=== PATIENT | female | born 1940 | race American Indian/Alaskan Native ===

== ENCOUNTER 2016-10-14 02:19 | Inpatient (IN) | payer MEDICARE ==
[2016-10-14] MEDS ORDERED: Labetalol 100 MG in Sodium Chloride 0.9% 80 ML IV PRN (02:41)
[2016-10-14] MEDS ORDERED: Labetalol 5 mg/ml Inj 20ML ONE (02:46)
[2016-10-14] MEDS ORDERED: Morphine 2 mg/ml ISec IVP STA ×2 (02:54→05:41)
[2016-10-14] MEDS: Labetalol 5 mg/ml Inj 20ML IV STA ×2 (02:55→07:01)
[2016-10-14] MEDS ORDERED: Nitroglycerin 2% Ointment Foilpak UD TOP STA (02:58)
--- NOTE | 2016-10-14 02:58 | ED PDOC ---
Arrival/HPI - General Chief Complaint: Chest Pain Time Seen by Provider: 10/14/16 02:28 Historian: Patient - History of Present Illness Narrative History of Present Illness (Text): 10/14/16 02:58 76 year old female. whose past medical history includes diabetes and hypertensions, presents to the emergency department complaining of mid-sternal chest pain since yesterday. Patient also reports left lower jaw swelling with associated pain to the area today. She states she regularly wears dentures. Patient denies any fever, chills, shortness of breath, nausea, vomiting, diarrhea, urinary symptoms, back pain, neck pain, headache, dizziness, or any other complaints. PMD: Dr. Gomes Time/Duration: Other (today) Symptom Course: Unchanged Activities at Onset: Light Context: Home Past Medical History - Provider Review Nursing Documentation Reviewed: Yes - Reproductive Menopause: Yes - Cardiac Hx Hypertension: Yes - Pulmonary Hx Respiratory Disorders: No - Neurological Hx Neurological Disorder: No - HEENT Hx HEENT Disorder: No - Renal Hx Renal Disorder: No - Endocrine/Metabolic Hx Diabetes Mellitus Type 2: Yes - Hematological/Oncological Hx Blood Disorders: No - Integumentary Hx Dermatological Disorder: No - Musculoskeletal/Rheumatological Hx Musculoskeletal Disorders: No - Gastrointestinal Hx Gastrointestinal Disorders: No - Genitourinary/Gynecological Hx Genitourinary Disorders: No - Psychiatric Hx Psychophysiologic Disorder: No Hx Substance Use: No Family/Social History - Physician Review Nursing Documentation Reviewed: Yes Family/Social History: No Known Family HX Smoking Status: Former Smoker Hx Alcohol Use: No Hx Substance Use: No Allergies/Home Meds Allergies/Adverse Reactions: Allergies Penicillins Allergy (Verified 10/14/16 02:33) RASH Home Medications: Home Meds Medication Instructions Recorded Confirmed Unobtainable 10/14/16 10/14/16 Review of Systems - Physician Review All systems were reviewed & negative as marked: Yes - Review of Systems Constitutional: Normal. absent: Fevers, Other (Chills) Respiratory: Normal. absent: SOB Cardiovascular: Chest Pain Gastrointestinal: absent: Diarrhea, Nausea, Vomiting Genitourinary Female: Normal. absent: Dysuria, Hematuria Musculoskeletal: Normal. absent: Back Pain, Neck Pain Skin: Other (Swelling on her left lower mouth ) Neurological: Normal. absent: Headache, Dizziness Physical Exam Vital Signs Reviewed: Yes Vital Signs Temp Pulse Resp BP Pulse Ox 10/14/16 05:19 86 16 146/71 98 10/14/16 04:39 102 H 16 162/89 H 98 10/14/16 04:02 100 H 16 169/77 H 99 10/14/16 03:35 88 178/100 H 10/14/16 02:55 98 H 220/98 H 10/14/16 02:33 99.1 F 98 H 18 244/131 H 96 Temperature: Afebrile Blood Pressure: Hypertensive Pulse: Regular Respiratory Rate: Normal Appearance: Positive for: Well-Appearing Pain Distress: None Mental Status: Positive for: Alert and Oriented X 3 - Systems Exam Head: Present: Normocephalic, Tenderness (tenderness to the left lower face), Swelling (Soft tissue swelling on the left lower face, with no overlying erythema to skin) Pupils: Present: PERRL Extroacular Muscles: Present: EOMI Conjunctiva: Present: Normal Mouth: Present: Moist Mucous Membranes. No: Normal Teeth (Poor dentition to the lower left molar teeth) Pharnyx: Present: Normal Neck: Present: Normal Range of Motion Respiratory/Chest: Present: Clear to Auscultation, Good Air Exchange. No: Respiratory Distress, Accessory Muscle Use Cardiovascular: Present: Regular Rate and Rhythm, Normal S1, S2. No: Murmurs Abdomen: Present: Normal Bowel Sounds. No: Tenderness, Distention, Peritoneal Signs Back: Present: Normal Inspection Upper Extremity: Present: Normal Inspection Lower Extremity: Present: Normal Inspection. No: Edema Neurological: Present: GCS=15, CN II-XII Intact, Speech Normal Skin: Present: Warm, Dry, Normal Color. No: Rashes Psychiatric: Present: Alert, Oriented x 3, Normal Insight, Normal Concentration Medical Decision Making ED Course and Treatment: 10/14/16 02:58 Impression: 76 year old female present complaining of left lower mouth swelling and pain that began yesterday. Plan: -- EKG -- Labs -- Blood Culture -- Chest X-ray -- Aspirin -- IV Fluids -- Morphine -- Nitro-bid -- Trandate -- Reassess and disposition Progress Notes: EKG shows NSR at 100 BPM with LVH Non-specific ST/T changes Interpreted by me. 10/14/16 03:57 Chest X-ray read and interpreted by me, which shows no acute processes. 10/14/16 05:[address] Larsen, covering for Dr. Liang, who aware and agrees with plan. Patient will be admitted to telemetry for uncontrolled hypertension, chest pain, and possible dental abscess. Requests Dr. Sood and Dr. Chapman on consult. founder president and ceo notified. - Lab Interpretations Lab Results: 10/14/16 02:55 10/14/16 02:55 Lab Results 10/14/16 02:55: WBC 8.5, RBC 4.28, Hgb 13.0, Hct 37.6, MCV 87.9, MCH 30.4, MCHC 34.6, RDW 13.3, Plt Count 234, MPV 10.6 10/14/16 02:55: Sodium 140, Potassium 3.8, Chloride 99, Carbon Dioxide 28, Anion Gap 17, BUN 10, Creatinine 0.7, Est GFR ( Amer) > 60, Est GFR (Non- Af Amer) > 60, Random Glucose 221 H, Calcium 9.6, Total Bilirubin 0.7, AST 22, ALT 31, Alkaline Phosphatase 78, Lactate Dehydrogenase 580, Total Creatine Kinase 200, Troponin I 0.01, Total Protein 8.4 H, Albumin 4.7, Globulin 3.7, Albumin/Globulin Ratio 1.3 10/14/16 02:55: PT 11.3, INR 1.05, APTT 26.4 I have reviewed the lab results: Yes - RAD Interpretation Radiology Orders: 10/14/16 02:43 CHEST PORTABLE [RAD] Stat - EKG Interpretation Interpreted by ED Physician: Yes Type: 12 lead EKG - Medication Orders Current Medication Orders: Labetalol HCl 100 mg/ Sodium (Chloride) 100 mls @ 60 mls/hr IV .Q1H40M PRN; Protocol; 1 MG/MIN PRN Reason: TITRATE PER MD ORDER Last Admin: 10/14/16 03:35 Dose: 60 mls/hr Clindamycin Phosphate 300 mg/ (Sodium Chloride) 52 mls @ 104 mls/hr IVPB STAT STA PRN Reason: Protocol Stop: 10/14/16 05:38 Discontinued Medications Aspirin (Aspirin) 325 mg PO ONCE STA Stop: 10/14/16 02:55 Last Admin: 10/14/16 03:03 Dose: 325 mg Labetalol HCl (Trandate) 20 mg IV STAT STA Stop: 10/14/16 02:42 Last Admin: 10/14/16 02:55 Dose: 20 mg Labetalol HCl (Trandate) Confirm Administered Dose 100 mg .ROUTE .STK-MED ONE Stop: 10/14/16 02:47 Morphine Sulfate (Morphine) 2 mg IVP STAT STA Stop: 10/14/16 02:55 Last Admin: 10/14/16 03:03 Dose: 2 mg Nitroglycerin (Nitro-Bid 2% Oint) 1 ea TOP ONCE STA Stop: 10/14/16 02:59 Last Admin: 10/14/16 03:17 Dose: 1 ea - Scribe Statement The provider has reviewed the documentation as recorded by the Scribe Cristel Lazo training with Imani Gill All medical record entries made by the Scribe were at my direction and personally dictated by me. I have reviewed the chart and agree that the record accurately reflects my personal performance of the history, physical exam, medical decision making, and the department course for this patient. I have also personally directed, reviewed, and agree with the discharge instructions and disposition. Disposition/Present on Arrival - Present on Arrival Any Indicators Present on Arrival: No History of DVT/PE: No History of Uncontrolled Diabetes: No Urinary Catheter: No History of Decub. Ulcer: No History Surgical Site Infection Following: None - Disposition Have Diagnosis and Disposition been Completed?: Yes Diagnosis: Chest pain, Uncontrolled hypertension, Dental abscess Disposition: HOSPITALIZED Disposition Time: 05:32 Patient Plan: Admission Condition: STABLE Discharge Instructions (ExitCare): Chest Pain (ED) Referrals: Bishnu Gomes [Primary Care Provider] - Follow up with primary Forms: [employer] (Citizen Of [place])
[2016-10-14 03:12] LABS: MEAN CELL VOLUME 87.9 fl (80.0-105.0); MEAN CORPUSCULAR HEMOGLOBIN 30.4 pg (25.0-35.0); MEAN CORPUSCULAR HGB CONC 34.6 g/dl (31.0-37.0); MEAN PLATELET VOLUME 10.6 fl (7.0-11.0); RBC 4.28 10^6/uL (3.5-6.1); RED CELL DISTRIBUTION WIDTH 13.3 % (11.5-14.5); WHITE BLOOD COUNT 8.5 10^3/ul (4.5-11.0)
[2016-10-14 03:19] LABS: ALB/GLOB RATIO 1.3 (1.1-1.8); ALBUMIN 4.7 g/dL (3.0-4.8); ALT/SGPT 31 U/L (7-56); AST/SGOT 22 U/L (15-39); BLOOD UREA NITROGEN 10 mg/dL (7-21); CALCIUM 9.6 mg/dL (8.4-10.5); GFR AFRICAN-AMERICAN > 60; GFR NON-AFRICAN AMERICAN > 60; INR 1.05 (0.93-1.08); PARTIAL THROMBOPLASTIN TIME 26.4 Seconds (23.7-30.8); PROTHROMBIN TIME 11.3 Seconds (9.9-11.8)
[2016-10-14 03:55] LABS: TROPONIN I 0.01 ng/mL
[2016-10-14] MEDS ORDERED: Clindamycin 300 MG in Sodium Chloride 0.9% 50 ML IVPB STA (05:09)
[2016-10-14] MEDS ORDERED: Clindamycin 150 mg/mL Inj ONE (05:44)
--- NOTE | 2016-10-14 07:37 | CP.PCM.HP ---
History of Present Illness - History of Present Illness History of Present Illness: CC: Jaw pain/Chest Pain/HTN HPI: Mrs. Oconnell is a 76 year old AA female with a past medical history significant for multiple dental caries, DM2 and uncontrolled HTN who presented to the ED with jaw and chest pain. Patient states that two days ago, her dentures were "rubbing the inside of her mouth too much" and causing her pain inside of her mouth so she took them out. The following morning she woke up with a new mass on her L jaw line and increased pain. Patient states that at that point she took motrin and a percocet 5/325 for the pain and afterwards she started having chest discomfort. She describes this discomfort as "indigestion" that she always gets when she takes motrin. The discomfort is substernal and non -radiating. She reports no alleviating or aggravating factors. She has never had either of these two issues in the past. Upon presentation to the ED, she was found to have a BP of 244/13 but denied any weakness, lightheadedness, vertigo, or pre-syncope. She reports having been admitted to [facility] for this issue in the past but reports that she was "dizzy and almost fainted" at that time. Currently, patient reports that her jaw pain is better but that she is concerned with the mass on her jaw. Patient denies any fever, chills, shortness of breath, nausea, vomiting, diarrhea, urinary symptoms, back pain, neck pain, headache, dizziness, or any other complaints. PMH: DM2, HTN, dental caries PSH: Heart Cath done at [facility] two years ago that showed no blockages, per patient (done for "precaution") Family: Two brothers with heart disease, with one dying from [place] at age 38 Social: 20 year pack smoking history but quit in 1992, denies alcohol or illicit drug use Allergies: Penicillin Home meds: Enalapril, Metoprolol, and Metformin Present on Admission - Present on Admission Any Indicators Present on Admission: No Review of Systems - Review of Systems Review of Systems: Please refer to HPI Past Patient History - Past Social History Smoking Status: Former Smoker - CARDIAC Hx Hypertension: Yes - PULMONARY Hx Respiratory Disorders: No - NEUROLOGICAL Hx Neurological Disorder: No - HEENT Hx HEENT Problems: No - RENAL Hx Chronic Kidney Disease: No - ENDOCRINE/METABOLIC Hx Diabetes Mellitus Type 2: Yes - HEMATOLOGICAL/ONCOLOGICAL Hx Blood Disorders: No - INTEGUMENTARY Hx Dermatological Problems: No - MUSCULOSKELETAL/RHEUMATOLOGICAL Hx Musculoskeletal Disorders: No - GASTROINTESTINAL Hx Gastrointestinal Disorders: No - GENITOURINARY/GYNECOLOGICAL Hx Genitourinary Disorders: No - PSYCHIATRIC Hx Psychophysiologic Disorder: No Hx Substance Use: No - SURGICAL HISTORY Hx Surgeries: No Meds Allergies/Adverse Reactions: Allergies Allergy/AdvReac Type Severity Reaction Status Date / Time Penicillins Allergy RASH Verified 10/14/16 02:33 Physical Exam - Constitutional Appears: No Acute Distress - Head Exam Head Exam: ATRAUMATIC, NORMOCEPHALIC - Eye Exam Eye Exam: EOMI, Normal appearance, PERRL. absent: Conjunctival injection, Periorbital tenderness, Scleral icterus Pupil Exam: NORMAL ACCOMODATION, PERRL - ENT Exam ENT Exam: Mucous Membranes Moist, Normal Exam Additional comments: Mobile, non-indurated approximately 6cm mass on L mandible with no overlying erythema or purulent drainage, and no visible open wounds on inside of mouth; multiple dental caries - Neck Exam Neck exam: Positive for: Full Rom, Normal Inspection. Negative for: Lymphadenopathy, Meningismus, Tenderness, Thyromegaly - Respiratory Exam Respiratory Exam: Clear to Auscultation Bilateral, NORMAL BREATHING PATTERN. absent: Rales, Rhonchi, Wheezes, Respiratory Distress, Stridor - Cardiovascular Exam Cardiovascular Exam: REGULAR RHYTHM, RRR, +S1, +S2. absent: Tachycardia, Systolic Murmur - GI/Abdominal Exam GI & Abdominal Exam: Normal Bowel Sounds, Soft. absent: Distended, Firm, Guarding, Tenderness - Exam Exam: absent: Bladder Distension - Extremities Exam Extremities exam: Positive for: normal capillary refill, normal inspection, pedal pulses present. Negative for: calf tenderness, pedal edema - Back Exam Back exam: absent: CVA tenderness (L), CVA tenderness (R) - Neurological Exam Neurological exam: Alert, Oriented x3 - Psychiatric Exam Psychiatric exam: Normal Affect, Normal Mood - Skin Skin Exam: Dry, Intact, Normal Color, Warm Results - Vital Signs Recent Vital Signs: Last Vital Signs Temp 100.3 F H 10/14/16 07:02 Pulse 73 10/14/16 07:02 Resp 18 10/14/16 07:02 BP 139/73 10/14/16 07:02 Pulse Ox 96 10/14/16 07:02 - Labs Result Diagrams: 10/14/16 02:55 10/14/16 02:55 Assessment & Plan - Assessment and Plan (Free Text) Assessment: 76 year old AA female with a past medical history significant for multiple dental caries, DM2 and uncontrolled HTN who presented to the ED with jaw and chest pain Plan: 1. Jaw Mass -likely infectious in etiology with possible source being dental caries -started on clindamycin 600mg IV Q8H; noted allergy to penicillin (patient states that she gets a rash) -motrin for pain control -zofran PRN -mandible w/wo contrast CT pending -ABG, CMV, EBV, CRP, ESR, Blood Culture and Urine Culture all pending -presented with tachycardia but currently afebrile, normotensive and with no leukocytosis -ENT and ID consulted, will follow recommendations 2. Uncontrolled Hypertension -presented with a BP of 244/131 -remained asymptomatic -started on labetolol drip and is currently normotensive -labetolol drip d/c so patient could be admitted to telemetry floor -started home metoprolol -started on lisinopril because home enalapril is NF -thyroid studies pending -cont to monitor with telemetry and vital signs Q4H 3. 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 DM Type 2 -SSI-Low -held home metformin -fingersticks Q6H ACHS -moderate carbohydrate consistent diet 5. GI/DVT Prophylaxis -Protonix/scd's Patient seen and case discussed with attending, Dr. Larsen who is covering for Dr. Liang's service overnight. - Date & Time Date: 10/14/16 Time: 07:35 Decision To Admit - Pt Status Changed To: Hospital Disposition Of: Inpatient Admission - Admit Certification Admit to Inpatient:: After my assessment, the patient will require hospitalization for at least two midnights. This is because of the severity of symptoms shown, intensity of services needed, and/or the medical risk in this patient being treated as an outpatient. - . Bed Request Type: Telemetry
--- NOTE | 2016-10-14 08:00 | RAD ---
HISTORY: chest pain COMPARISON: No prior. FINDINGS: LUNGS: No active pulmonary disease. PLEURA: No significant pleural effusion identified, no pneumothorax apparent. CARDIOVASCULAR: Normal. OSSEOUS STRUCTURES: No significant abnormalities. VISUALIZED UPPER ABDOMEN: Normal. OTHER FINDINGS: None. IMPRESSION: No active disease.
[2016-10-14 08:07] LABS: ARTERIAL BLOOD GAS O2 SAT 97.4 % (95-98); ARTERIAL BLOOD GAS PCO2 38 mm/Hg (35-45); ARTERIAL BLOOD GAS PH 7.46 (7.35-7.45); ARTERIAL BLOOD GAS TCO2 28.2 mmol.L (22-28)
[2016-10-14] MEDS: Vancomycin 1gm in NS 250ml 1 GM/250 ML BAG IVPB SCH ×2 (08:36→20:13)
[2016-10-14] MEDS: metroNIDAZOLE IV 500 mg/100 ml 500 MG/100 ML BAG IVPB SCH ×3 (08:37→23:43)
[2016-10-14] MEDS: Sodium Chloride 0.9% 1,000 ML IV SCH ×2 (08:37→22:58)
[2016-10-14 09:28] LABS: FREE T4 1.15 ng/dL (0.78-2.19); T4 7.9 ug/dL (5.5-11.0)
[2016-10-14 09:34] LABS: TROPONIN I 0.01 ng/mL
[2016-10-14 09:41] LABS: T3 1.04 ng/mL (0.97-1.69)
[2016-10-14] MEDS: Aztreonam 1 Gm in NS 100mL 100 ML IVPB SCH ×3 (11:11→22:41)
[2016-10-14] MEDS ORDERED: Iohexol 350 MG/100 ML VIAL ONE (11:11)
[2016-10-14] MEDS: Nystatin 100,000 Units/ml Oral Susp 5 ml UD PO SCH ×4 (11:12→22:47)
[2016-10-14] MEDS: Morphine 2 mg/ml ISec IVP SCH ×2 (11:17→17:39)
--- NOTE | 2016-10-14 13:14 | CT ---
PROCEDURE: CT NECK WITH and without CONTRAST HISTORY: r/o abscess COMPARISON: None TECHNIQUE: CT of the neck with intravenous contrast. Coronal and sagittal reformats generated. Intravenous contrast dose: 100 cc of Omni 350 Radiation dose: DLP 472 mGy-cm This CT exam was performed using one or more of the following dose reduction techniques: Automated exposure control, adjustment of the mA and/or kV according to patient size, and/or use of iterative reconstruction technique. FINDINGS: NASOPHARYNX: Unremarkable. SUPRAHYOID NECK: Unremarkable oropharynx, oral cavity, parapharyngeal space and retropharyngeal space. INFRAHYOID NECK: Unremarkable larynx, hypopharynx, and supraglottic space. Vocal cords intact. There is a large amount of soft tissue swelling and edema anterior to the left side of the mandible. This is consistent with cellulitis. There is no evidence of a discrete abscess and there is no bony destruction to suggest a dental abscess. There are some bilateral periapical lucencies around the molars. MASS: None. GLANDS: Parotid and submandibular glands unremarkable. Normal size thyroid gland, without nodule. LYMPH NODES: Normal. No lymphadenopathy. CERVICAL SPINE: No fracture or focal lesion. VASCULAR STRUCTURES: Unremarkable. OTHER FINDINGS: None. IMPRESSION: There is a large amount of soft tissue swelling and edema anterior to the left side of the mandible. This is consistent with cellulitis. There is no evidence of a discrete abscess and there is no bony destruction to suggest a dental abscess.
[2016-10-14] MEDS: Insulin Reg-LOW-Coverage SC SCH ×3 (13:15→22:39)
--- NOTE | 2016-10-14 17:09 | CP.PCM.CON ---
History of Present Illness - History of Present Illness History of Present Illness: 76 year old female with PMH of HTN, DM came in to [facility] because of chest pain and left-sided jaw pain for the past 1-2 days. She states that she has been having some problems with her dentures over the past few days. She denies SOB, no headache or dizziness, no abdominal pain, no fever or chills, no dysuria, no diarrhea. There is noted swelling on the left side of the jaw and Infectious Diseases consult is requested to further evaluate and manage. Review of Systems - Review of Systems All systems: reviewed and no additional remarkable complaints except (as per HPI ) Past Patient History - Past Social History Smoking Status: Former Smoker - CARDIAC Hx Hypertension: Yes - PULMONARY Hx Respiratory Disorders: No - NEUROLOGICAL Hx Neurological Disorder: No - HEENT Hx HEENT Problems: No - RENAL Hx Chronic Kidney Disease: No - ENDOCRINE/METABOLIC Hx Diabetes Mellitus Type 2: Yes - HEMATOLOGICAL/ONCOLOGICAL Hx Blood Disorders: No - INTEGUMENTARY Hx Dermatological Problems: No - MUSCULOSKELETAL/RHEUMATOLOGICAL Hx Musculoskeletal Disorders: No - GASTROINTESTINAL Hx Gastrointestinal Disorders: No - GENITOURINARY/GYNECOLOGICAL Hx Genitourinary Disorders: No - PSYCHIATRIC Hx Psychophysiologic Disorder: No Hx Substance Use: No - SURGICAL HISTORY Hx Surgeries: No Meds Allergies/Adverse Reactions: Allergies Allergy/AdvReac Type Severity Reaction Status Date / Time Penicillins Allergy RASH Verified 10/14/16 02:33 Physical Exam - Constitutional Appears: Non-toxic, No Acute Distress - Head Exam Head Exam: NORMAL INSPECTION - Neck Exam Neck exam: Negative for: Meningismus - Respiratory Exam Respiratory Exam: Decreased Breath Sounds - Cardiovascular Exam Cardiovascular Exam: +S1, +S2 - GI/Abdominal Exam GI & Abdominal Exam: Soft. absent: Tenderness Results - Vital Signs Recent Vital Signs: Last Vital Signs Temp 99.1 F 10/14/16 02:33 Pulse 100 H 10/14/16 06:07 Resp 16 10/14/16 06:07 BP 145/69 10/14/16 06:07 Pulse Ox 97 10/14/16 06:07 - Labs Result Diagrams: 10/14/16 02:55 10/14/16 02:55 Assessment & Plan - Assessment and Plan (Free Text) Plan: Assessment Left jaw skin and skin structure infection, without evidence of abscess on CT scan HTN DM Plan We have started the patient on Vancomycin and will monitor clinically; follow up blood cx; reviewed CT of the neck and jaw
--- NOTE | 2016-10-14 19:58 | CARD ---
APPROVED REPORT EXAM: Two-dimensional and M-mode echocardiogram with Doppler and color Doppler. INDICATION Hypertension/HCVD Chest Pain 2D DIMENSIONS Left Atrium (2D)3.2 (1.6-4.0cm)IVSd1.1 (0.7-1.1cm) LVDd3.8 (3.9-5.9cm)PWd1.0 (0.7-1.1cm) LVDs2.6 (2.5-4.0cm)FS (%) 32.2 % LVEF (%)61.2 (>50%) Aortic Valve AoV Peak Ehuarhhg274.0cm/Benji Peak GR.18mmHg Mitral Valve E/A ratio0.0 TDI E/Lateral E'0.0E/Medial E'0.0 Tricuspid Valve TR Peak [id number] Peak Gr.34mmHg LEFT VENTRICLE The left ventricle is normal size. There is borderline concentric left ventricular hypertrophy. The left ventricular function is normal. The left ventricular ejection fraction is within the normal range. There is normal LV segmental wall motion. Transmitral Doppler flow pattern is Grade I-abnormal relaxation pattern. RIGHT VENTRICLE The right ventricle is normal size. There is normal right ventricular wall thickness. The right ventricular systolic function is normal. ATRIA The left atrium is borderline dilated. The right atrium size is normal. AORTIC VALVE The aortic valve is moderately sclerotic. No aortic regurgitation is present. MITRAL VALVE The mitral valve is mildly thickened. There is no mitral valve regurgitation noted. TRICUSPID VALVE There is mild tricuspid regurgitation. There is mild pulmonary hypertension. GREAT VESSELS The aortic root displays moderate to severe sclerocalcific changes of the aortic root. PERICARDIAL EFFUSION There is no pericardial effusion. <Conclusion> The left ventricle is normal size. There is borderline concentric left ventricular hypertrophy. The left ventricular function is normal. The left ventricular ejection fraction is within the normal range. There is normal LV segmental wall motion. Transmitral Doppler flow pattern is Grade I-abnormal relaxation pattern. There is mild tricuspid regurgitation. There is mild pulmonary hypertension.
--- NOTE | 2016-10-14 23:21 | CARD ---
APPROVED REPORT EKG Measurement Heart [id number] ID [id number] <Conclusion> Sinus tachycardia Moderate voltage criteria for LVH, may be normal variant Nonspecific T wave abnormality Abnormal ECG
[2016-10-15] MEDS: Morphine 2 mg/ml ISec IVP SCH ×5 (00:06→23:12)
--- NOTE | 2016-10-15 00:47 | CARD ---
APPROVED REPORT EKG Measurement Heart [id number] <Conclusion> Normal sinus rhythm with sinus arrhythmia Moderate voltage criteria for LVH, may be normal variant T wave abnormality, consider lateral ischemia Abnormal ECG
--- NOTE | 2016-10-15 00:56 | CARD ---
APPROVED REPORT EKG Measurement Heart [id number] <Conclusion> Normal sinus rhythm Possible Left atrial enlargement Left ventricular hypertrophy Nonspecific ST and T wave abnormality Abnormal ECG
[2016-10-15] MEDS: Sodium Chloride 0.9% 1,000 ML IV SCH ×2 (03:16→17:40)
[2016-10-15] MEDS: Aztreonam 1 Gm in NS 100mL 100 ML IVPB SCH ×3 (05:05→22:31)
[2016-10-15] MEDS: Pantoprazole 40 mg EC Tab PO SCH (05:34)
[2016-10-15] MEDS: metroNIDAZOLE IV 500 mg/100 ml 500 MG/100 ML BAG IVPB SCH ×3 (06:31→21:15)
[2016-10-15 07:21] LABS: BASO # 0.03 K/mm3 (0.0-2.0); BASO % 0.5 % (0.0-3.0); EOS # 0.2 (0.0-0.7); EOS % 4.2 % (1.5-5.0); GRAN # 3.32 (1.4-6.5); HEMOGLOBIN 10.4 g/dL (12.0-16.0); LYMPH # 1.6 (1.2-3.4); LYMPH % 28.1 % (22.0-35.0); MEAN CELL VOLUME 88.6 fl (80.0-105.0); MEAN CORPUSCULAR HEMOGLOBIN 29.5 pg (25.0-35.0); MEAN CORPUSCULAR HGB CONC 33.3 g/dl (31.0-37.0); MEAN PLATELET VOLUME 10.3 fl (7.0-11.0); MONO # 0.5 (0.1-0.6); MONO % 9.2 % (1.0-6.0); PLATELET COUNT 189 10^3/uL (120.0-450.0); RBC 3.52 10^6/uL (3.5-6.1); RED CELL DISTRIBUTION WIDTH 13.5 % (11.5-14.5); WHITE BLOOD COUNT 5.7 10^3/ul (4.5-11.0)
[2016-10-15 07:35] LABS: URINE BILIRUBIN NEGATIVE (NEGATIVE); URINE BLOOD TRACE-INTACT (NEGATIVE); URINE GLUCOSE (UA) NEGATIVE (NEGATIVE); URINE LEUKOCYTE ESTERASE TRACE Leu/uL (NEGATIVE); URINE NITRATE NEGATIVE (NEGATIVE); URINE PROTEIN TRACE mg/dL (<30 mg/dL); URINE UROBILINOGEN 0.2 E.U./dL (<1 E.U./dL)
[2016-10-15 07:37] LABS: ALB/GLOB RATIO 1.1 (1.1-1.8); ALBUMIN 3.3 g/dL (3.0-4.8); ALT/SGPT 25 U/L (7-56); AST/SGOT 22 U/L (15-39); BLOOD UREA NITROGEN 12 mg/dL (7-21); CALCIUM 8.5 mg/dL (8.4-10.5); GFR AFRICAN-AMERICAN > 60; GFR NON-AFRICAN AMERICAN > 60
[2016-10-15 07:37] LABS: URINE APPEARANCE CLEAR (CLEAR); URINE COLOR YELLOW (YELLOW)
[2016-10-15 07:44] LABS: TROPONIN I < 0.01 ng/mL
[2016-10-15 07:47] LABS: URINE BACTERIA FEW (NEG); URINE EPITHELIAL CELLS 0 - 2 /hpf (0-5); URINE RBC 0 - 2 /hpf (0-2); URINE WBC 15 - 20 /hpf (0-6)
[2016-10-15] MEDS ORDERED: Morphine 2 mg/ml ISec IVP STA (08:01)
[2016-10-15] MEDS: Insulin Reg-LOW-Coverage SC SCH ×4 (08:15→21:52)
[2016-10-15] MEDS: Vancomycin 1gm in NS 250ml 1 GM/250 ML BAG IVPB SCH ×2 (08:42→20:41)
[2016-10-15] MEDS: Nystatin 100,000 Units/ml Oral Susp 5 ml UD PO SCH ×4 (09:05→21:12)
[2016-10-15] MEDS ORDERED: Potassium Chloride 40 mEq/30 ml LIQ UD PO ONE (09:10)
--- NOTE | 2016-10-15 14:02 | CON ---
DATE: 10/14/2016 EAR, NOSE AND THROAT CONSULTATION: CONSULTING PHYSICIAN: Dr. Christiano Solis. REFERRING PHYSICIAN: Dr. Leah Alex. REASON FOR CONSULTATION: Mandible mass. HISTORY OF PRESENT ILLNESS: This is a 76-year-old female who has a past medical history of diabetes, hypertension, who came in to the [place] emergency room with swelling and pain to her left jaw and also chest tightness per the family members who at the bedside. They stated that they saw the patient at 4 p.m. yesterday before she was admitted, and compared to today, the left jaw area is significantly enlarged. The patient reports the pain is associated with this. She did not notice that the mass has gotten any better since yesterday and she does not report that it gets better or worse with chewing food. The patient has never had any similar symptoms in the past. She does note some chills at home, but no fever. She has had no recent dental work or any recent illnesses. She denies any shortness of breath, difficulty breathing, dysphagia, or odynophagia and denies otalgia, otorrhea or changes in hearing. PAST MEDICAL HISTORY: Diabetes, hypertension. PAST SURGICAL HISTORY: Cardiac catheterization. SOCIAL HISTORY: She has a past medical history of smoking, but stopped 15 years ago. No alcohol use. ALLERGIES: ALLERGY TO [place] WHERE SHE GETS A RASH. HOME MEDICATIONS: Include enalapril, metoprolol, and metformin. REVIEW OF SYSTEMS: Negative as per HPI. PHYSICAL EXAMINATION: GENERAL: She is awake, alert, and oriented x3, no acute distress, lying comfortably. VITAL SIGNS: Temperature of 100.3, pulse rate 73, blood pressure 139/73, respirations 18, O2 saturation 96% on room air. HEENT: Ears are unremarkable. Nose is patent bilaterally. No discharge. No epistaxis. Cloggy turbinates noted. Oral cavity, oropharynx: Lips are unremarkable. She has poor dentition on the mandibular side and no dentition on the maxillary side. Oral mucosa is dry. Tongue is mobile and midline. Uvula and palate are symmetrical with no pharyngeal erythema. There is very mild swelling to the left floor of the mouth. Clear saliva is being expressed from the [place] duct. No salivary stones are palpated in the submandibular duct. Face: There is a significant enlargement to the anterior left jaw that is very tender to palpation. There are no discrete masses, induration or fluctuance palpated. There is some reactive lymphadenopathy in the left neck. No overlying skin changes or erythema. No bites or draining aspects to the enlargement. Her respirations are nonlabored. LABORATORY DATA: White blood cell count is 8.5, hemoglobin 13, hematocrit 37.6, and platelets 234. Glucose 282. There is a CT neck from today, which reads large amount of the soft tissue swelling and edema anterior to the left side of mandible. This is consistent with cellulitis. No evidence of discrete abscess. There is no bony destruction or dental abscess. There is some bilateral periapical lucencies around the molar. Parotids and submandibular glands are unremarkable. Normal size thyroid without nodules. ASSESSMENT AND PLAN: This is a 76-year-old female with swelling to the left jaw, which appears to be cellulitic in origin. We will consider that this was sialadenitis with the stone that has passed, however, this does not seem likely given the normal size of the submandibular gland on scan. At this point, unclear etiology of this swelling. However, we recommend placing the patient on antibiotics, recommend clindamycin or Unasyn. We could also recommend a short dose of steroids to help with swelling with warm compressors should be applied to the affected area 4 to 5 times a day and adequate pain control with anti-inflammatories. Otherwise, the patient can follow up with us in the office within one week to ensure resolution of these symptoms. Thank you for allowing us to participate in this patient's care. Christiano Solis DO
--- NOTE | 2016-10-15 16:06 | CP.PCM.PN ---
Subjective - Date & Time of Evaluation Date of Evaluation: 10/15/16 Time of Evaluation: 09:45 - Subjective Subjective: Still with pain in the left side of the jaw, no fevers overnight. Objective - Vital Signs/Intake and Output Vital Signs (last 24 hours): Temp Pulse Resp BP Pulse Ox 98.8 F 79 20 149/78 99 10/15/16 06:00 10/15/16 06:00 10/15/16 06:00 10/15/16 06:00 10/15/16 06:00 - Medications Medications: Current Medications Sodium Chloride (Sodium Chloride 0.9%) 1,000 mls @ 100 mls/hr IV .Q10H [facility] Last Admin: 10/15/16 03:16 Dose: 100 mls/hr Vancomycin HCl (Vancomycin 1gm) 1 gm in 250 mls @ 167 mls/hr IVPB Q12H [facility] PRN Reason: Protocol Last Admin: 10/14/16 20:13 Dose: 167 mls/hr Aztreonam (Azactam 1 Gm) 100 mls @ 100 mls/hr IVPB Q8 [facility] PRN Reason: Protocol Stop: 10/21/16 08:31 Last Admin: 10/15/16 05:05 Dose: 100 mls/hr Metronidazole (Flagyl) 500 mg in 100 mls @ 100 mls/hr IVPB Q8 [facility] PRN Reason: Protocol Last Admin: 10/14/16 23:43 Dose: 100 mls/hr Ibuprofen (Motrin Tab) 400 mg PO Q6H PRN PRN Reason: Pain, moderate (4-7) Last Admin: 10/15/16 02:14 Dose: 400 mg Insulin Human Regular (Humulin R Low) 0 units SC ACHS [facility] PRN Reason: Protocol Last Admin: 10/14/16 22:39 Dose: Not Given Ketorolac Tromethamine (Toradol) 15 mg IVP Q6 PRN PRN Reason: Pain, moderate (4-7) Stop: 10/19/16 17:09 Last Admin: 10/14/16 17:28 Dose: 15 mg Lisinopril (Zestril) 20 mg PO DAILY [facility] Last Admin: 10/14/16 11:17 Dose: 20 mg Metoprolol Tartrate (Lopressor) 25 mg PO BID [facility] Last Admin: 08/10/17 17:37 Dose: 25 mg Morphine Sulfate (Morphine) 1 mg IVP Q6 [facility] Last Admin: 10/15/16 05:34 Dose: 1 mg Nystatin (Nystatin Oral Susp) 5 ml PO QID [facility] Last Admin: 10/14/16 22:47 Dose: 5 ml Ondansetron HCl (Zofran Inj) 4 mg IVP Q4H PRN PRN Reason: Nausea/Vomiting Pantoprazole Sodium (Protonix Ec Tab) 40 mg PO 0600 [facility] Last Admin: 10/15/16 05:34 Dose: 40 mg - Labs Labs: PT 11.3 Seconds (9.9-11.8) 10/14/16 02:55 INR 1.05 (0.93-1.08) 10/14/16 02:55 APTT 26.4 Seconds (23.7-30.8) 10/14/16 02:55 - Constitutional Appears: Non-toxic, No Acute Distress - Head Exam Additional comments: left jaw with swelling and some tenderness on palpation - ENT Exam ENT Exam: Mucous Membranes Moist - Neck Exam Neck Exam: absent: Lymphadenopathy, Meningismus Assessment and Plan - Assessment and Plan (Free Text) Plan: Assessment Left jaw skin and skin structure infection, without evidence of abscess on CT scan HTN DM Plan will continue Vancomycin and we have added Azactam and Flagly (day 2) and will monitor clinically; follow up blood cx; reviewed CT of the neck and jaw
--- NOTE | 2016-10-15 19:01 | CP.PCM.PN ---
Subjective - Date & Time of Evaluation Date of Evaluation: 10/15/16 Time of Evaluation: 06:45 - Subjective Subjective: Pt s/e bedside. Pt's pain is worse than yesterday, as is her swelling. Pt was given a stat dose of Morphine .5mg for her pain. No new complaints. Objective - Vital Signs/Intake and Output Vital Signs (last 24 hours): Temp Pulse Resp BP Pulse Ox 101 F H 81 20 149/88 99 10/15/16 17:23 10/15/16 18:00 10/15/16 12:00 10/15/16 12:00 10/15/16 06:00 Intake and Output: 10/15/16 10/15/16 06:59 18:59 Intake Total 240 480 Output Total 1 Balance 239 480 - Medications Medications: Current Medications Sodium Chloride (Sodium Chloride 0.9%) 1,000 mls @ 100 mls/hr IV .Q10H [facility] Last Admin: 10/15/16 17:40 Dose: Not Given Vancomycin HCl (Vancomycin 1gm) 1 gm in 250 mls @ 167 mls/hr IVPB Q12H [facility] PRN Reason: Protocol Last Admin: 10/15/16 08:42 Dose: 167 mls/hr Aztreonam (Azactam 1 Gm) 100 mls @ 100 mls/hr IVPB Q8 [facility] PRN Reason: Protocol Stop: 10/21/16 08:31 Last Admin: 10/15/16 14:42 Dose: 100 mls/hr Metronidazole (Flagyl) 500 mg in 100 mls @ 100 mls/hr IVPB Q8 [facility] PRN Reason: Protocol Last Admin: 10/15/16 14:42 Dose: 100 mls/hr Clindamycin Phosphate 900 mg/ (Sodium Chloride) 106 mls @ 106 mls/hr IVPB Q8 [facility] PRN Reason: Protocol Last Admin: 10/15/16 14:42 Dose: 106 mls/hr Ibuprofen (Motrin Tab) 400 mg PO Q6H PRN PRN Reason: Pain, moderate (4-7) Last Admin: 10/15/16 17:23 Dose: 400 mg Insulin Human Regular (Humulin R Low) 0 units SC ACHS [facility] PRN Reason: Protocol Last Admin: 10/15/16 17:02 Dose: Not Given Ketorolac Tromethamine (Toradol) 15 mg IVP Q6 PRN PRN Reason: Pain, moderate (4-7) Stop: 10/19/16 17:09 Last Admin: 10/14/16 17:28 Dose: 15 mg Lisinopril (Zestril) 20 mg PO DAILY [facility] Last Admin: 10/15/16 09:05 Dose: 20 mg Methylprednisolone (Solu-Medrol) 20 mg IVP Q12 [facility] Metoprolol Tartrate (Lopressor) 25 mg PO BID [facility] Last Admin: 10/15/16 17:08 Dose: 25 mg Morphine Sulfate (Morphine) 1 mg IVP Q6 [facility] Last Admin: 10/15/16 17:08 Dose: 1 mg Nystatin (Nystatin Oral Susp) 5 ml PO QID [facility] Last Admin: 10/15/16 17:07 Dose: 5 ml Ondansetron HCl (Zofran Inj) 4 mg IVP Q4H PRN PRN Reason: Nausea/Vomiting Pantoprazole Sodium (Protonix Ec Tab) 40 mg PO 0600 [facility] Last Admin: 10/15/16 05:34 Dose: 40 mg - Labs Labs: 10/15/16 06:30 10/15/16 06:30 PT 11.3 Seconds (9.9-11.8) 10/14/16 02:55 INR 1.05 (0.93-1.08) 10/14/16 02:55 APTT 26.4 Seconds (23.7-30.8) 10/14/16 02:55 - Constitutional Appears: Well - Head Exam Head Exam: ATRAUMATIC, NORMAL INSPECTION, NORMOCEPHALIC - Eye Exam Eye Exam: EOMI, Normal appearance, PERRL Pupil Exam: NORMAL ACCOMODATION, PERRL - ENT Exam ENT Exam: Mucous Membranes Moist Additional comments: Noted swelling on L mandibular region. Mucous membranes on L superior and inferior gums have a white, viscous film. Multiple dental caries noted. Hard and soft palate appear inflamed. - Neck Exam Neck Exam: Full ROM, Normal Inspection - Respiratory Exam Respiratory Exam: Clear to Ausculation Bilateral, NORMAL BREATHING PATTERN - Cardiovascular Exam Cardiovascular Exam: REGULAR RHYTHM, +S1, +S2 - GI/Abdominal Exam GI & Abdominal Exam: Soft, Normal Bowel Sounds - Extremities Exam Extremities Exam: Full ROM, Normal Capillary Refill, Normal Inspection - Back Exam Back Exam: NORMAL INSPECTION - Neurological Exam Neurological Exam: Alert, Awake, CN II-XII Intact, Normal Gait, Oriented x3 - Psychiatric Exam Psychiatric exam: Normal Affect, Normal Mood - Skin Skin Exam: Normal Color Assessment and Plan - Assessment and Plan (Free Text) Assessment: 76 year old AA female with a past medical history significant for multiple dental caries, DM2 and uncontrolled HTN who presented to the ED with jaw and chest pain Plan: Plan: 1. Jaw Mass -likely infectious in etiology with possible source being dental caries -started on clindamycin 600mg IV Q8H; noted allergy to penicillin (patient states that she gets a rash) -motrin for pain control -zofran PRN -mandible w/wo contrast CT: No abscesses noted, but obvious cellulitis -ABG, CMV, EBV, CRP, ESR, Blood Culture and Urine Culture all pending -Presented with tachycardia but currently afebrile, normotensive and with no leukocytosis -ENT: Anti-inflammatories, Warm compresses; Clindamycin or unasyn (we are using clinda) -ID: Added Vanc, Flagyl, and Azactam. Follow up blood cx 2. Uncontrolled Hypertension -presented with a BP of 244/131 -remained asymptomatic -started on labetolol drip and is currently normotensive -labetolol drip d/c so patient could be admitted to telemetry floor -started home metoprolol -started on lisinopril because home enalapril is NF -thyroid studies pending -cont to monitor with telemetry and vital signs Q4H 3. Chest Pain -likely etiology is indigestion but considering atypical angina pectoris -patient [place] [facility] [place]; will ask daughter name of the telehealth coordinator -risk factors: DM, HTN, smoking history, family history -troponins negative x1; serial troponins pending -lipid panel pending -cardiology consulted (Barrie), will follow recommendations 4. DM Type 2 -SSI-Low -held home metformin -fingersticks Q6H ACHS -moderate carbohydrate consistent diet 5. GI/DVT Prophylaxis -Protonix/scd's
[2016-10-15] MEDS: MethylPREDNISolone 40 mg Vial IVP SCH (21:12)
--- NOTE | 2016-10-15 22:37 | CON ---
DATE: 10/15/2016 CARDIOLOGY CONSULTATION HISTORY OF PRESENT ILLNESS: The patient is a 76-year-old woman, who presented with swelling of the jaw with atypical chest pain. The patient is free of cardiac history. PAST MEDICAL HISTORY: The patient's past medical history is notable for history of diabetes mellitus, hypertension and questionable hypercholesterolemia. She denies chest pain. SOCIAL HISTORY: She is a former smoker. REVIEW OF SYSTEMS: A 14-point review of systems was reviewed. No cardiac symptomatology is noted. PHYSICAL EXAMINATION: VITAL SIGNS: Blood pressure 149/78, heart rate is in the 70s. NECK: Negative JVD. LUNGS: Without rales. HEART: S1, S2. EXTREMITIES: Without edema. Left side of her jaw is markedly swollen. EKG shows normal sinus rhythm with nonspecific ST-T changes. LABORATORY DATA: Hemoglobin is 10.4. Chemistries, troponins are negative x2. Glucose is 155. Echocardiogram reveals normal LV function with LVH and mild pulmonary hypertension. IMPRESSION: 1. Infection of the left jaw. 2. Hypertension. 3. Diabetes mellitus. 4. Anemia. Given these findings, there is no evidence for acute coronary syndrome. The patient is currently on IV antibiotics for her jaw swelling. We will maintain on telemetry for 24 hours. Phong Sood MD
[2016-10-16] MEDS: Aztreonam 1 Gm in NS 100mL 100 ML IVPB SCH ×2 (05:10→13:11)
[2016-10-16] MEDS: Morphine 2 mg/ml ISec IVP SCH ×4 (05:38→23:59)
[2016-10-16] MEDS: metroNIDAZOLE IV 500 mg/100 ml 500 MG/100 ML BAG IVPB SCH ×3 (05:39→23:47)
[2016-10-16] MEDS: Pantoprazole 40 mg EC Tab PO SCH (05:39)
[2016-10-16 07:21] LABS: BASO # 0.01 K/mm3 (0.0-2.0); BASO % 0.2 % (0.0-3.0); GRAN # 4.01 (1.4-6.5); GRAN % 81.5 % (50.0-68.0); HEMOGLOBIN 10.1 g/dL (12.0-16.0); LYMPH # 0.7 (1.2-3.4); LYMPH % 14.8 % (22.0-35.0); MEAN CELL VOLUME 88.4 fl (80.0-105.0); MEAN CORPUSCULAR HEMOGLOBIN 29.4 pg (25.0-35.0); MEAN CORPUSCULAR HGB CONC 33.2 g/dl (31.0-37.0); MEAN PLATELET VOLUME 10.3 fl (7.0-11.0); MONO # 0.2 (0.1-0.6); MONO % 3.5 % (1.0-6.0); PLATELET COUNT 185 10^3/uL (120.0-450.0); RBC 3.44 10^6/uL (3.5-6.1); RED CELL DISTRIBUTION WIDTH 13.6 % (11.5-14.5); WHITE BLOOD COUNT 4.9 10^3/ul (4.5-11.0)
[2016-10-16 07:51] LABS: ALB/GLOB RATIO 1.2 (1.1-1.8); ALBUMIN 3.3 g/dL (3.0-4.8); ALT/SGPT 23 U/L (7-56); AST/SGOT 19 U/L (15-39); BLOOD UREA NITROGEN 17 mg/dL (7-21); CALCIUM 8.4 mg/dL (8.4-10.5); GFR AFRICAN-AMERICAN > 60; GFR NON-AFRICAN AMERICAN > 60
[2016-10-16] MEDS: Vancomycin 1gm in NS 250ml 1 GM/250 ML BAG IVPB SCH ×2 (08:20→20:46)
--- NOTE | 2016-10-16 08:22 | CP.PCM.PN ---
Subjective - Date & Time of Evaluation Date of Evaluation: 10/16/16 Time of Evaluation: 08:00 - Subjective Subjective: PGY2 Medicine note for Dr. Liang Patient seen and examined at bedside. She reports feeling better and that the swelling of her left jaw had improved. She reports pain with palpation of her jaw. She has been eating and drinking and denies any feelings of asphyxiation. Nursing reported no acute events overnight. She denied acute complaints of headache, dizziness, chest pain, palpitations, SOB, cough, abdominal pain, nausea, vomiting, bowel/bladder complaints, pain/swelling in her legs bilaterally. Objective - Vital Signs/Intake and Output Vital Signs (last 24 hours): Temp Pulse Resp BP Pulse Ox 98.6 F 78 20 139/85 99 10/16/16 00:01 10/16/16 00:01 10/16/16 00:01 10/16/16 00:01 10/16/16 00:01 Intake and Output: 10/16/16 10/16/16 06:59 18:59 Intake Total 600 1200 Balance 600 1200 - Medications Medications: Current Medications Sodium Chloride (Sodium Chloride 0.9%) 1,000 mls @ 100 mls/hr IV .Q10H [facility] Last Admin: 10/15/16 17:40 Dose: Not Given Vancomycin HCl (Vancomycin 1gm) 1 gm in 250 mls @ 167 mls/hr IVPB Q12H [facility] PRN Reason: Protocol Last Admin: 10/15/16 20:41 Dose: 167 mls/hr Aztreonam (Azactam 1 Gm) 100 mls @ 100 mls/hr IVPB Q8 [facility] PRN Reason: Protocol Stop: 10/21/16 08:31 Last Admin: 10/16/16 05:10 Dose: 100 mls/hr Metronidazole (Flagyl) 500 mg in 100 mls @ 100 mls/hr IVPB Q8 [facility] PRN Reason: Protocol Last Admin: 10/16/16 05:39 Dose: 100 mls/hr Clindamycin Phosphate 900 mg/ (Sodium Chloride) 106 mls @ 106 mls/hr IVPB Q8 [facility] PRN Reason: Protocol Last Admin: 10/16/16 05:09 Dose: 106 mls/hr Ibuprofen (Motrin Tab) 400 mg PO Q6H PRN PRN Reason: Pain, moderate (4-7) Last Admin: 10/15/16 17:23 Dose: 400 mg Insulin Human Regular (Humulin R Low) 0 units SC ACHS [facility] PRN Reason: Protocol Last Admin: 10/15/16 21:52 Dose: Not Given Ketorolac Tromethamine (Toradol) 15 mg IVP Q6 PRN PRN Reason: Pain, moderate (4-7) Stop: 10/19/16 17:09 Last Admin: 10/14/16 17:28 Dose: 15 mg Lisinopril (Zestril) 20 mg PO DAILY [facility] Last Admin: 10/15/16 09:05 Dose: 20 mg Methylprednisolone (Solu-Medrol) 20 mg IVP Q12 [facility] Last Admin: 10/15/16 21:12 Dose: 20 mg Metoprolol Tartrate (Lopressor) 25 mg PO BID [facility] Last Admin: 10/15/16 17:08 Dose: 25 mg Morphine Sulfate (Morphine) 1 mg IVP Q6 [facility] Last Admin: 10/16/16 05:38 Dose: 1 mg Nystatin (Nystatin Oral Susp) 5 ml PO QID [facility] Last Admin: 10/15/16 21:12 Dose: 5 ml Ondansetron HCl (Zofran Inj) 4 mg IVP Q4H PRN PRN Reason: Nausea/Vomiting Pantoprazole Sodium (Protonix Ec Tab) 40 mg PO 0600 [facility] Last Admin: 10/16/16 05:39 Dose: 40 mg - Labs Labs: 10/16/16 06:00 10/16/16 06:00 PT 11.3 Seconds (9.9-11.8) 10/14/16 02:55 INR 1.05 (0.93-1.08) 10/14/16 02:55 APTT 26.4 Seconds (23.7-30.8) 10/14/16 02:55 - Constitutional Appears: Non-toxic, No Acute Distress - Eye Exam Eye Exam: EOMI, Normal appearance. absent: Conjunctival injection, Scleral icterus Pupil Exam: NORMAL ACCOMODATION - ENT Exam ENT Exam: Mucous Membranes Dry. absent: Normal Exam Additional comments: Left jaw swelling noted- tender to palpation mobile, non indurated, non fluctuant, non erythematous, non purulent, no open wounds noted inside the patient's mouth, multiple dental caries - Neck Exam Neck Exam: Lymphadenopathy (Left side). absent: Meningismus - Respiratory Exam Respiratory Exam: Clear to Ausculation Bilateral, NORMAL BREATHING PATTERN. absent: Accessory Muscle Use, Rales, Rhonchi, Wheezes, Respiratory Distress - Cardiovascular Exam Cardiovascular Exam: REGULAR RHYTHM, RRR, +S1, +S2 - GI/Abdominal Exam GI & Abdominal Exam: Soft, Normal Bowel Sounds. absent: Firm, Guarding, Rigid, Tenderness - Extremities Exam Extremities Exam: Normal Capillary Refill, Normal Inspection. absent: Pedal Edema - Back Exam Back Exam: NORMAL INSPECTION. absent: rash noted - Neurological Exam Neurological Exam: Alert, Awake, Oriented x3 - Psychiatric Exam Psychiatric exam: Normal Affect, Normal Mood - Skin Skin Exam: Dry, Intact, Normal Color, Warm Assessment and Plan - Assessment and Plan (Free Text) Assessment: 76yo AA female PMHx multiple dental caries, DM2 and uncontrolled HTN who presented to the ED with jaw and chest pain Plan: Left jaw swelling -likely infectious in etiology with possible source being dental caries vs sialadenitis with passed stone - blood culture prelim negative x 2 - wound culture 10/14: no polymorphonuclear WBCs, few gram + cocci, rare gram neg rods - CMV IgG: > 10 CMV IgM: pending - ESR: 26 - CRP: 12.35 - Procalcitonin: 0.05 - Soft tissue neck CT 10/14: large amount of soft tissue swelling and edema anterior to left side of the mandible consistent with cellulitis. No evidence of a discrete abscess and there is no bony destruction to suggest a dental abscess - Azactam 1gm ivpb q8 Day 3 - Clindamycin 900mg ivpb q8 Day 3 - Flagyl 500mg ivpb q8 day 3 - Vancomycin 1gm ivpb q12 day 3 f/u random vanc level - Nystatin swish&swallow for oral thrush - Solumedrol 20mg ivp q12 - Zofran 4mg ivp q4 prn nausea/vomiting - Morphine 1mg ivp q6 - Toradol 15mg ivp q6 prn pain moderate - Motrin 400mg po q6 prn pain moderate - ENT Dr. Solis on board - ID Dr. Garcia on board - Patient recommended to see dentist outpatient Uncontrolled Hypertension - Resolved - on admission: BP of 244/131 patient reports she had not taken hypertensive medications for a couple of days started on labetolol gtt in the ER and hypertension resolved and patient was sent to TELE - Lipid panel WNL - Thyroid panel WNL - Continue home regimen: Lisinopril 20mg po dialy Lopressor 25mg po bid - CASANDRA negative x 3 and EKGs had no acute changes - TELE discontinued - Cardiology Dr. Sood on board Chest Pain - On admission- currently resolved - Likely etiology is indigestion but considering atypical angina pectoris - Patient [place] [facility] [place]; will ask daughter name of the potato loader - Risk factors: DM, HTN, smoking history, family history - CASANDRA negative x 3 and EKGs had no acute changes - Lipid panel WNL - Thyroid panel WNL - BP has been well controlled since admission - TELE discontinued - Cardiology Dr. Sood on board Uncontrolled DM2 - HgbA1c: 8.3 - RISS low ACHS - Accucheck ACHS - moderate carbohydrate consistent diet GI ppx: Protonix 40mg po daily DVT ppx: SCDs Dispo: pending TCU eval Case discussed with Dr. Garth Tolliver PGY2
[2016-10-16] MEDS: Insulin Reg-LOW-Coverage SC SCH ×4 (08:38→22:37)
[2016-10-16] MEDS: MethylPREDNISolone 40 mg Vial IVP SCH ×2 (09:45→22:37)
[2016-10-16] MEDS: Nystatin 100,000 Units/ml Oral Susp 5 ml UD PO SCH ×4 (09:48→22:37)
--- NOTE | 2016-10-16 20:46 | CP.PCM.PN ---
Subjective - Date & Time of Evaluation Date of Evaluation: 10/16/16 Time of Evaluation: 10:30 - Subjective Subjective: Patient is comfortable in bed, not in distress, still had fever yesterday afternoon but has not had fever this morning. Slightly better swelling and pain on the left jaw. Objective - Vital Signs/Intake and Output Vital Signs (last 24 hours): Temp Pulse Resp BP Pulse Ox 98.6 F 78 20 139/85 99 10/16/16 00:01 10/16/16 00:01 10/16/16 00:01 10/16/16 00:01 10/16/16 00:01 Intake and Output: 10/16/16 10/16/16 06:59 18:59 Intake Total 600 Balance 600 - Medications Medications: Current Medications Sodium Chloride (Sodium Chloride 0.9%) 1,000 mls @ 100 mls/hr IV .Q10H [facility] Last Admin: 10/15/16 17:40 Dose: Not Given Vancomycin HCl (Vancomycin 1gm) 1 gm in 250 mls @ 167 mls/hr IVPB Q12H [facility] PRN Reason: Protocol Last Admin: 10/15/16 20:41 Dose: 167 mls/hr Aztreonam (Azactam 1 Gm) 100 mls @ 100 mls/hr IVPB Q8 [facility] PRN Reason: Protocol Stop: 10/21/16 08:31 Last Admin: 10/16/16 05:10 Dose: 100 mls/hr Metronidazole (Flagyl) 500 mg in 100 mls @ 100 mls/hr IVPB Q8 [facility] PRN Reason: Protocol Last Admin: 10/16/16 05:39 Dose: 100 mls/hr Clindamycin Phosphate 900 mg/ (Sodium Chloride) 106 mls @ 106 mls/hr IVPB Q8 [facility] PRN Reason: Protocol Last Admin: 10/16/16 05:09 Dose: 106 mls/hr Ibuprofen (Motrin Tab) 400 mg PO Q6H PRN PRN Reason: Pain, moderate (4-7) Last Admin: 10/15/16 17:23 Dose: 400 mg Insulin Human Regular (Humulin R Low) 0 units SC ACHS [facility] PRN Reason: Protocol Last Admin: 10/15/16 21:52 Dose: Not Given Ketorolac Tromethamine (Toradol) 15 mg IVP Q6 PRN PRN Reason: Pain, moderate (4-7) Stop: 10/19/16 17:09 Last Admin: 10/14/16 17:28 Dose: 15 mg Lisinopril (Zestril) 20 mg PO DAILY [facility] Last Admin: 10/15/16 09:05 Dose: 20 mg Methylprednisolone (Solu-Medrol) 20 mg IVP Q12 [facility] Last Admin: 10/15/16 21:12 Dose: 20 mg Metoprolol Tartrate (Lopressor) 25 mg PO BID [facility] Last Admin: 10/15/16 17:08 Dose: 25 mg Morphine Sulfate (Morphine) 1 mg IVP Q6 [facility] Last Admin: 10/16/16 05:38 Dose: 1 mg Nystatin (Nystatin Oral Susp) 5 ml PO QID [facility] Last Admin: 10/15/16 21:12 Dose: 5 ml Ondansetron HCl (Zofran Inj) 4 mg IVP Q4H PRN PRN Reason: Nausea/Vomiting Pantoprazole Sodium (Protonix Ec Tab) 40 mg PO 0600 [facility] Last Admin: 10/16/16 05:39 Dose: 40 mg - Labs Labs: 10/16/16 06:00 10/15/16 06:30 PT 11.3 Seconds (9.9-11.8) 10/14/16 02:55 INR 1.05 (0.93-1.08) 10/14/16 02:55 APTT 26.4 Seconds (23.7-30.8) 10/14/16 02:55 - Constitutional Appears: Non-toxic, No Acute Distress - Head Exam Head Exam: NORMAL INSPECTION - Neck Exam Neck Exam: absent: Meningismus - Respiratory Exam Respiratory Exam: Decreased Breath Sounds - Cardiovascular Exam Cardiovascular Exam: +S1, +S2 - GI/Abdominal Exam GI & Abdominal Exam: Soft. absent: Tenderness Assessment and Plan - Assessment and Plan (Free Text) Plan: Assessment Left jaw skin and skin structure infection, without evidence of abscess on CT scan HTN DM Plan will continue Vancomycin and we have added Azactam and Flagyl (day 3) and will monitor clinically; blood cx are negative; reviewed CT of the neck and jaw
[2016-10-17 02:12] LABS: ALB/GLOB RATIO 1.2 (1.1-1.8); ALT/SGPT 21 U/L (7-56); AST/SGOT 25 U/L (15-39); BLOOD UREA NITROGEN 19 mg/dL (7-21); GFR AFRICAN-AMERICAN > 60; GFR NON-AFRICAN AMERICAN > 60
[2016-10-17] MEDS: Aztreonam 1 Gm in NS 100mL 100 ML IVPB SCH ×4 (03:04→21:52)
[2016-10-17] MEDS: Pantoprazole 40 mg EC Tab PO SCH (05:26)
[2016-10-17] MEDS: Morphine 2 mg/ml ISec IVP SCH ×3 (05:26→17:36)
[2016-10-17] MEDS: metroNIDAZOLE IV 500 mg/100 ml 500 MG/100 ML BAG IVPB SCH ×3 (06:09→22:53)
[2016-10-17] MEDS: Vancomycin 1gm in NS 250ml 1 GM/250 ML BAG IVPB SCH ×2 (08:23→21:08)
[2016-10-17] MEDS: Insulin Reg-LOW-Coverage SC SCH ×4 (08:23→21:52)
[2016-10-17 08:24] LABS: BASO # 0.02 K/mm3 (0.0-2.0); BASO % 0.3 % (0.0-3.0); EOS % 0.3 % (1.5-5.0); GRAN # 4.28 (1.4-6.5); GRAN % 73.7 % (50.0-68.0); HEMOGLOBIN 10.8 g/dL (12.0-16.0); LYMPH # 1.2 (1.2-3.4); LYMPH % 19.8 % (22.0-35.0); MEAN CELL VOLUME 88.4 fl (80.0-105.0); MEAN CORPUSCULAR HEMOGLOBIN 29.9 pg (25.0-35.0); MEAN CORPUSCULAR HGB CONC 33.9 g/dl (31.0-37.0); MONO # 0.3 (0.1-0.6); MONO % 5.9 % (1.0-6.0); PLATELET COUNT 230 10^3/uL (120.0-450.0); RBC 3.61 10^6/uL (3.5-6.1); RED CELL DISTRIBUTION WIDTH 13.2 % (11.5-14.5); WHITE BLOOD COUNT 5.8 10^3/ul (4.5-11.0)
[2016-10-17 08:37] LABS: ALB/GLOB RATIO 1.2 (1.1-1.8); ALBUMIN 3.6 g/dL (3.0-4.8); ALT/SGPT 21 U/L (7-56); AST/SGOT 24 U/L (15-39); BLOOD UREA NITROGEN 16 mg/dL (7-21); CALCIUM 8.8 mg/dL (8.4-10.5); GFR AFRICAN-AMERICAN > 60; GFR NON-AFRICAN AMERICAN > 60; MAGNESIUM 1.8 mg/dL (1.7-2.2)
[2016-10-17] MEDS: Nystatin 100,000 Units/ml Oral Susp 5 ml UD PO SCH ×4 (09:50→21:52)
[2016-10-17] MEDS: MethylPREDNISolone 40 mg Vial IVP SCH ×2 (09:50→21:52)
--- NOTE | 2016-10-17 13:07 | CP.PCM.PN ---
Subjective - Date & Time of Evaluation Date of Evaluation: 10/17/16 Time of Evaluation: 13:08 - Subjective Subjective: Medicine progress note for Dr. Liang/Dr. Gorman service - Emmett Dockeryariel PGY2 Patient seen and examined at bedside in conjunction with Dr. Champion (covering for Dr. Liang/Dr. Gorman). Patient reported that her left jaw pain/swelling has improved since admission. Discussed current workup/results/plan with the patient. She is aware of need for antibiotics and follow up with a dentist. She is pending TCU eval for physical therapy. Otherwise, no acute events were reported by nursing. She denies chest pain, palpitatiosn, SOB, abdominal pain, nausea, vomiting. Tolerating PO intake well. Objective - Vital Signs/Intake and Output Vital Signs (last 24 hours): Temp Pulse Resp BP Pulse Ox 99 F 77 20 160/84 H 99 10/17/16 07:00 10/17/16 07:00 10/17/16 07:00 10/17/16 09:49 10/17/16 07:00 Intake and Output: 10/17/16 10/17/16 06:59 18:59 Intake Total 180 Balance 180 - Medications Medications: Current Medications Vancomycin HCl (Vancomycin 1gm) 1 gm in 250 mls @ 167 mls/hr IVPB Q12H EMILIO PRN Reason: Protocol Last Admin: 10/17/16 08:23 Dose: 167 mls/hr Aztreonam (Azactam 1 Gm) 100 mls @ 100 mls/hr IVPB Q8 EMILIO PRN Reason: Protocol Stop: 10/21/16 08:31 Last Admin: 10/17/16 06:07 Dose: Not Given Metronidazole (Flagyl) 500 mg in 100 mls @ 100 mls/hr IVPB Q8 EMILIO PRN Reason: Protocol Last Admin: 10/17/16 06:09 Dose: Not Given Ibuprofen (Motrin Tab) 400 mg PO Q6H PRN PRN Reason: Pain, moderate (4-7) Last Admin: 10/15/16 17:23 Dose: 400 mg Insulin Human Regular (Humulin R Low) 0 units SC ACHS EMILIO PRN Reason: Protocol Last Admin: 10/17/16 11:57 Dose: Not Given Ketorolac Tromethamine (Toradol) 15 mg IVP Q6 PRN PRN Reason: Pain, moderate (4-7) Stop: 10/19/16 17:09 Last Admin: 10/16/16 09:48 Dose: 15 mg Lisinopril (Zestril) 20 mg PO DAILY REPLACED BY [facility] Last Admin: 10/17/16 09:49 Dose: 20 mg Methylprednisolone (Solu-Medrol) 20 mg IVP Q12 REPLACED BY [facility] Last Admin: 10/17/16 09:50 Dose: 20 mg Metoprolol Tartrate (Lopressor) 25 mg PO BID REPLACED BY [facility] Last Admin: 10/17/16 09:49 Dose: 25 mg Morphine Sulfate (Morphine) 1 mg IVP Q6 REPLACED BY [facility] Last Admin: 10/17/16 05:26 Dose: Not Given Nystatin (Nystatin Oral Susp) 5 ml PO QID REPLACED BY [facility] Last Admin: 10/17/16 09:50 Dose: 5 ml Ondansetron HCl (Zofran Inj) 4 mg IVP Q4H PRN PRN Reason: Nausea/Vomiting Pantoprazole Sodium (Protonix Ec Tab) 40 mg PO 0600 REPLACED BY [facility] Last Admin: 10/17/16 05:26 Dose: 40 mg - Labs Labs: 10/17/16 06:45 10/17/16 07:00 PT 11.3 Seconds (9.9-11.8) 10/14/16 02:55 INR 1.05 (0.93-1.08) 10/14/16 02:55 APTT 26.4 Seconds (23.7-30.8) 10/14/16 02:55 - Constitutional Appears: Non-toxic, No Acute Distress - Head Exam Head Exam: ATRAUMATIC, NORMAL INSPECTION, NORMOCEPHALIC - Eye Exam Eye Exam: EOMI, PERRL - ENT Exam ENT Exam: Mucous Membranes Moist Additional comments: left jaw swelling, mildly tender to palptation - Respiratory Exam Respiratory Exam: Clear to Ausculation Bilateral. absent: Rales, Rhonchi, Wheezes - Cardiovascular Exam Cardiovascular Exam: +S1, +S2. absent: Gallop, Rubs, Murmur - GI/Abdominal Exam GI & Abdominal Exam: Soft. absent: Distended, Firm, Guarding, Rigid, Tenderness , Rebound - Neurological Exam Neurological Exam: Alert, Awake, Oriented x3 - Psychiatric Exam Psychiatric exam: Normal Affect, Normal Mood - Skin Skin Exam: Dry, Intact, Normal Color, Warm Assessment and Plan - Assessment and Plan (Free Text) Plan: 76yo female with history of multiple dental caries, T2DM and uncontrolled hypertension presented to the ED c/o left jaw pain and swelling as well as chest pain 1. Left jaw infection - likely infectious in etiology with possible source being dental caries vs sialadenitis with passed stone - Blood culture negative - Wound culture negative; normal oral scarlet - CMV IgG: > 10, CMV IgM: pending - ESR: 26, CRP: 12.35 - Procalcitonin: 0.05 - Soft tissue neck CT on 10/14 reviewed; revealed large amount of soft tissue swelling and edema anterior to left side of the mandible consistent with cellulitis. No evidence of a discrete abscess and there is no bony destruction to suggest a dental abscess (see full report) - Continue Azactam 1gm ivpb q8 Day 4, Flagyl 500mg ivpb q8 day 4 and Vancomycin 1gm ivpb q12 day 4 - per ID recommendations - Vanc trough on 10/16: 8.9 - Nystatin swish&swallow for oral thrush - Morphine 1mg ivp q6 - Solumedrol 20mg ivp q12 - Zofran 4mg ivp q4 prn nausea/vomiting - Toradol 15mg ivp q6 prn pain moderate - Motrin 400mg po q6 prn pain moderate - ENT Dr. Solis on board - ID Dr. Garcia on board - Patient recommended to see dentist outpatient 2. Hypertensive urgency - BP on admission 244/131, reportedly non-compliant with antihypertensive meications - Patient was started on labetolol gtt in the ER and hypertension resolved and patient was sent to TELE - Lipid panel WNL - Thyroid panel WNL - Home regimen resumed: Lisinopril 20mg po daily, Lopressor 25mg po bid 3. Chest Pain r/o ACS - Patient reports resolution of her chest pain - Patient reported cath at [facility] two years ago with no stent placement - Risk factors: DM, HTN, smoking history, family history - Troponin negative x3 - EKG reviewed; no acute ST-T wave changes - Lipid panel WNL - Thyroid panel WNL - Cardiology Dr. Sood on board 4. Uncontrolled DM2 - HgbA1c: 8.3 - RISS low ACHS - Accucheck ACHS - moderate carbohydrate consistent diet 5. GI/DVT prophylaxis -protonix/SCD's Dispo: pending TCU eval Patient seen and case discussed with attending, Dr. Champion
--- NOTE | 2016-10-17 13:53 | CARD ---
APPROVED REPORT EKG Measurement Heart [id number] <Conclusion> Normal sinus rhythm Moderate voltage criteria for LVH, may be normal variant Borderline ECG
--- NOTE | 2016-10-17 14:29 | PN ---
DATE: 10/16/2016 SUBJECTIVE: The patient is comfortable. Her swelling in the jaw is better. PHYSICAL EXAMINATION: VITAL SIGNS: Blood pressure 157/83 and heart rates in the 70s. The patient is afebrile. NECK: Negative JVD. LUNGS: Without rales. HEART: Reveals S1 and S2. EXTREMITIES: Without edema. LABORATORY DATA: Hemoglobin is 10.8. Glucose is 232. IMPRESSION: 1. Soft tissue infection. 2. Hypertension. 3. Diabetes mellitus. 4. Anemia. PLAN: 1. Given these findings, the patient's blood pressure is better controlled on lisinopril and beta-blockers. 2. Continue IV antibiotics. 3. Once her infection is gone, we will consider cardiac testing due to cardiac risk factors. Phong Sood MD
--- NOTE | 2016-10-17 18:16 | CP.PCM.PN ---
Subjective - Date & Time of Evaluation Date of Evaluation: 10/17/16 Time of Evaluation: 11:40 - Subjective Subjective: Comfortable, not in distress, afebrile. Less pain in the left jaw. Objective - Vital Signs/Intake and Output Vital Signs (last 24 hours): Temp Pulse Resp BP Pulse Ox 99 F 77 20 157/83 H 99 10/17/16 07:00 10/17/16 07:00 10/17/16 07:00 10/17/16 07:00 10/17/16 07:00 Intake and Output: 10/17/16 10/17/16 06:59 18:59 Intake Total 180 Balance 180 - Medications Medications: Current Medications Vancomycin HCl (Vancomycin 1gm) 1 gm in 250 mls @ 167 mls/hr IVPB Q12H EMILIO PRN Reason: Protocol Last Admin: 10/16/16 20:46 Dose: 167 mls/hr Aztreonam (Azactam 1 Gm) 100 mls @ 100 mls/hr IVPB Q8 EMILIO PRN Reason: Protocol Stop: 10/21/16 08:31 Last Admin: 10/17/16 06:07 Dose: Not Given Metronidazole (Flagyl) 500 mg in 100 mls @ 100 mls/hr IVPB Q8 EMILIO PRN Reason: Protocol Last Admin: 10/17/16 06:09 Dose: Not Given Clindamycin Phosphate 900 mg/ (Sodium Chloride) 106 mls @ 106 mls/hr IVPB Q8 EMILIO PRN Reason: Protocol Last Admin: 10/17/16 06:07 Dose: Not Given Ibuprofen (Motrin Tab) 400 mg PO Q6H PRN PRN Reason: Pain, moderate (4-7) Last Admin: 10/15/16 17:23 Dose: 400 mg Insulin Human Regular (Humulin R Low) 0 units SC ACHS EMILIO PRN Reason: Protocol Last Admin: 10/16/16 22:37 Dose: Not Given Ketorolac Tromethamine (Toradol) 15 mg IVP Q6 PRN PRN Reason: Pain, moderate (4-7) Stop: 10/19/16 17:09 Last Admin: 10/16/16 09:48 Dose: 15 mg Lisinopril (Zestril) 20 mg PO DAILY [facility] Last Admin: 10/16/16 09:45 Dose: 20 mg Methylprednisolone (Solu-Medrol) 20 mg IVP Q12 [facility] Last Admin: 10/16/16 22:37 Dose: 20 mg Metoprolol Tartrate (Lopressor) 25 mg PO BID [facility] Last Admin: 10/17/16 00:38 Dose: 25 mg Morphine Sulfate (Morphine) 1 mg IVP Q6 [facility] Last Admin: 10/17/16 05:26 Dose: Not Given Nystatin (Nystatin Oral Susp) 5 ml PO QID [facility] Last Admin: 10/16/16 22:37 Dose: 5 ml Ondansetron HCl (Zofran Inj) 4 mg IVP Q4H PRN PRN Reason: Nausea/Vomiting Pantoprazole Sodium (Protonix Ec Tab) 40 mg PO 0600 [facility] Last Admin: 10/17/16 05:26 Dose: 40 mg - Labs Labs: 10/16/16 06:00 10/17/16 01:15 PT 11.3 Seconds (9.9-11.8) 10/14/16 02:55 INR 1.05 (0.93-1.08) 10/14/16 02:55 APTT 26.4 Seconds (23.7-30.8) 10/14/16 02:55 - Constitutional Appears: Non-toxic, No Acute Distress - Head Exam Head Exam: NORMAL INSPECTION - ENT Exam ENT Exam: Mucous Membranes Moist - Neck Exam Neck Exam: absent: Lymphadenopathy, Meningismus - Respiratory Exam Respiratory Exam: Decreased Breath Sounds - Cardiovascular Exam Cardiovascular Exam: +S1, +S2 - GI/Abdominal Exam GI & Abdominal Exam: Soft. absent: Tenderness Assessment and Plan - Assessment and Plan (Free Text) Plan: Assessment Left jaw skin and skin structure infection, without evidence of abscess on CT scan HTN DM Plan will continue Vancomycin and we have added Azactam and Flagyl (day 4) and will monitor clinically; blood cx are negative; reviewed CT of the neck and jaw
[2016-10-18] MEDS: Morphine 2 mg/ml ISec IVP SCH ×3 (00:59→13:19)
--- NOTE | 2016-10-18 01:23 | PN ---
DATE: 10/17/2016 SUBJECTIVE: The patient is seen in room 560, bed 2 with the biomedical specialist. OBJECTIVE: Please refer to the detailed progress notes done by the biomedical specialist on 10/17/2016. The patient's vital signs, and diagnostic were reviewed. The patient was examined at bedside with biomedical specialist. IMPRESSION: 1. Left jaw and submandibular skin structure infection. 2. Status post hypertensive urgency. 3. Chest pain. 4. Uncontrolled type 2 diabetes mellitus. 5. Normocytic anemia. 6. Mildly elevated lymphocyte sedimentation rate. 7. Hyperoxemia. 8. Uncontrolled diabetes mellitus with hemoglobin A1c of 8.3 and hyperglycemia. 9. Dyslipidemia. 10. Proteuria, hematuria, pyuria, bacteruria. 11. Left mandible large amount of soft tissue swelling and edema consistent with cellulitis without any abscess. 12. 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 13. Left ventricular ejection fraction of 61%. 14. Mild tricuspid regurgitation and mild pulmonary arterial hypertension. 15. Possible sialadenitis. 16. Uncontrolled hypertension. PLAN: At this time, the patient is awaiting for transfer to PCU. The patient has been ordered HIV test, CMP, CMB. Current consultations; infectious disease, cardiology, ENT. CURRENT MEDICATIONS: Azactam 1 g IV q. 8 hours, Flagyl 500 mg IV q. 8 hours, regular low dose sliding scale insulin coverage, Lopressor 25 mg twice a day, morphine 1 mg IV q. 6 hours p.r.n., Motrin 400 mg q. 6 hours p.r.n., nystatin oral suspension 5 mL q.i.d., Protonix 40 mg daily, Solo-Medrol 20 mg IV q. 12 hours, Toradol 15 mg IV q. 6 hours p.r.n., vancomycin 1 mg IV q. 12 hours, Zestril 40 mg daily, Zofran 4 mg IV q. 4 hours p.r.n. At present, the patient's blood pressure is not optimized and not controlled. We will maximize antihypertensive therapy with maximizing Zestril to 40 mg p.o. daily. The patient's Zestril will be increased to 40 mg p.o. daily for optimum blood pressure control. The patient is awaiting transitional care unit evaluation and transfer for continuation of the IV antibiotic. For a detailed progress note on this patient, please review the progress note done by the biomedical specialist today. Dictated and electronically signed, not read. Signing off, Waldo Champion MD
[2016-10-18] MEDS: Pantoprazole 40 mg EC Tab PO SCH (05:20)
[2016-10-18] MEDS: metroNIDAZOLE IV 500 mg/100 ml 500 MG/100 ML BAG IVPB SCH ×2 (05:20→15:36)
[2016-10-18] MEDS: Aztreonam 1 Gm in NS 100mL 100 ML IVPB SCH ×2 (05:36→15:37)
--- NOTE | 2016-10-18 06:53 | CP.PCM.PN ---
Objective - Vital Signs/Intake and Output Vital Signs (last 24 hours): Temp Pulse Resp BP Pulse Ox 98.6 F 74 20 168/72 H 97 10/17/16 16:22 10/17/16 16:22 10/17/16 16:22 10/17/16 17:34 10/17/16 16:22 Intake and Output: 10/17/16 10/18/16 18:59 06:59 Intake Total 180 780 Balance 180 780 - Medications Medications: Current Medications Vancomycin HCl (Vancomycin 1gm) 1 gm in 250 mls @ 167 mls/hr IVPB Q12H EMILIO PRN Reason: Protocol Last Admin: 10/17/16 21:08 Dose: 167 mls/hr Aztreonam (Azactam 1 Gm) 100 mls @ 100 mls/hr IVPB Q8 EMILIO PRN Reason: Protocol Stop: 10/21/16 08:31 Last Admin: 10/18/16 05:36 Dose: 100 mls/hr Metronidazole (Flagyl) 500 mg in 100 mls @ 100 mls/hr IVPB Q8 EMILIO PRN Reason: Protocol Last Admin: 10/18/16 05:20 Dose: 100 mls/hr Ibuprofen (Motrin Tab) 400 mg PO Q6H PRN PRN Reason: Pain, moderate (4-7) Last Admin: 10/15/16 17:23 Dose: 400 mg Insulin Human Regular (Humulin R Low) 0 units SC ACHS EMILIO PRN Reason: Protocol Last Admin: 10/17/16 21:52 Dose: 2 units Ketorolac Tromethamine (Toradol) 15 mg IVP Q6 PRN PRN Reason: Pain, moderate (4-7) Stop: 10/19/16 17:09 Last Admin: 10/16/16 09:48 Dose: 15 mg Lisinopril (Zestril) [address] [facility] Methylprednisolone (Solu-Medrol) [address] [facility] Last Admin: 10/17/16 21:52 Dose: 20 mg Metoprolol Tartrate (Lopressor) [address] [facility] Last Admin: 10/17/16 17:34 Dose: 25 mg Morphine Sulfate (Morphine) [address] [facility] Last Admin: 10/18/16 06:19 Dose: Not Given Nystatin (Nystatin Oral Susp) [address] [facility] Last Admin: 10/17/16 21:52 Dose: 5 ml Ondansetron HCl (Zofran Inj) 4 mg IVP Q4H PRN PRN Reason: Nausea/Vomiting Pantoprazole Sodium (Protonix Ec Tab) [address] [facility] Last Admin: 10/18/16 05:20 Dose: 40 mg - Labs Labs: 10/17/16 06:45 10/17/16 07:00 PT 11.3 Seconds (9.9-11.8) 10/14/16 02:55 INR 1.05 (0.93-1.08) 10/14/16 02:55 APTT 26.4 Seconds (23.7-30.8) 10/14/16 02:55
[2016-10-18 07:15] LABS: BASO # 0.01 K/mm3 (0.0-2.0); BASO % 0.2 % (0.0-3.0); EOS % 0.7 % (1.5-5.0); GRAN # 2.74 (1.4-6.5); GRAN % 60.9 % (50.0-68.0); HEMOGLOBIN 10.7 g/dL (12.0-16.0); LYMPH # 1.5 (1.2-3.4); LYMPH % 32.2 % (22.0-35.0); MEAN CELL VOLUME 88.5 fl (80.0-105.0); MEAN CORPUSCULAR HEMOGLOBIN 29.4 pg (25.0-35.0); MEAN CORPUSCULAR HGB CONC 33.2 g/dl (31.0-37.0); MEAN PLATELET VOLUME 10.7 fl (7.0-11.0); MONO # 0.3 (0.1-0.6); PLATELET COUNT 239 10^3/uL (120.0-450.0); RBC 3.64 10^6/uL (3.5-6.1); RED CELL DISTRIBUTION WIDTH 13.5 % (11.5-14.5); WHITE BLOOD COUNT 4.5 10^3/ul (4.5-11.0)
[2016-10-18 07:23] LABS: ALB/GLOB RATIO 1.2 (1.1-1.8); ALBUMIN 3.5 g/dL (3.0-4.8); ALT/SGPT 23 U/L (7-56); AST/SGOT 23 U/L (15-39); BLOOD UREA NITROGEN 16 mg/dL (7-21); CALCIUM 8.8 mg/dL (8.4-10.5); GFR AFRICAN-AMERICAN > 60; GFR NON-AFRICAN AMERICAN > 60
[2016-10-18 07:49] VITALS: O2SAT 100
--- NOTE | 2016-10-18 09:08 | PN ---
DATE: 10/16/2016 SUBJECTIVE: The patient is chest pain free. No shortness of breath noted. Her jaw is somewhat better. PHYSICAL EXAMINATION: VITAL SIGNS: Blood pressure is 156/71, heart rate in the 80s. NECK: Negative JVD. LUNGS: Without rales. HEART: S1 and S2. EXTREMITIES: Without edema. Troponins are negative. IMPRESSION: 1. Resolution of atypical chest pain. 2. Hypertension. 3. Infection of the jaw. 4. Anemia. 5. Diabetes mellitus. PLAN: Given these findings, there is no evidence for acute coronary syndrome. We will DC telemetry today. Because of her cardiac risk factors, we will arrange for an outpatient stress test once her infection is resolved. Phong Sood MD
[2016-10-18] MEDS: Vancomycin 1gm in NS 250ml 1 GM/250 ML BAG IVPB SCH (09:17)
[2016-10-18] MEDS: Insulin Reg-LOW-Coverage SC SCH ×3 (09:18→15:00)
[2016-10-18] MEDS: MethylPREDNISolone 40 mg Vial IVP SCH (09:18)
[2016-10-18] MEDS: Nystatin 100,000 Units/ml Oral Susp 5 ml UD PO SCH ×3 (09:20→17:53)
[2016-10-18] MEDS ORDERED: Alum-Mag Hydrox-Simethicone Susp (30 mL) PO ONE (09:30)
[2016-10-18 12:00] LABS: TROPONIN I < 0.01 ng/mL
--- NOTE | 2016-10-18 13:45 | PN ---
DATE: 10/18/2016 SUBJECTIVE: The patient's swelling in her jaws are much improved. PHYSICAL EXAMINATION: VITAL SIGNS: Blood pressure 175/80, heart rate in the 70s. NECK: Negative JVD. LUNGS: Without rales. HEART: Reveal S1 and S2. EXTREMITIES: Without edema. LABORATORY DATA: Glucose is 203, hemoglobin is 10.7. IMPRESSION: 1. Infection of the left jaw. 2. Hypertension. 3. Diabetes mellitus. 4. Resolution of chest pain. PLAN: Given these findings, the patient's blood pressure needs better control. She is currently on lisinopril 40. We will add low-dose hydrochlorothiazide. Given her risk factors, we will arrange for an outpatient Lexiscan next week. Phong Sood MD
--- NOTE | 2016-10-18 15:08 | CP.PCM.PN ---
Subjective - Date & Time of Evaluation Date of Evaluation: 10/18/16 Time of Evaluation: 12:15 - Subjective Subjective: Feeling better, less pain in the left jaw, no fevers overnight. Objective - Vital Signs/Intake and Output Vital Signs (last 24 hours): Temp Pulse Resp BP Pulse Ox 97.4 F L 69 20 175/80 H 100 10/18/16 07:30 10/18/16 07:30 10/18/16 07:30 10/18/16 09:20 10/18/16 07:30 Intake and Output: 10/18/16 10/18/16 06:59 18:59 Intake Total 780 Balance 780 - Medications Medications: Current Medications Hydralazine HCl (Apresoline) 10 mg IVP Q6 PRN PRN Reason: Systolic Blood Pressure Vancomycin HCl (Vancomycin 1gm) 1 gm in 250 mls @ 167 mls/hr IVPB Q12H EMILIO PRN Reason: Protocol Last Admin: 10/18/16 09:17 Dose: 167 mls/hr Aztreonam (Azactam 1 Gm) 100 mls @ 100 mls/hr IVPB Q8 EMILIO PRN Reason: Protocol Stop: 10/21/16 08:31 Last Admin: 10/18/16 05:36 Dose: 100 mls/hr Metronidazole (Flagyl) 500 mg in 100 mls @ 100 mls/hr IVPB Q8 EMILIO PRN Reason: Protocol Last Admin: 10/18/16 05:20 Dose: 100 mls/hr Ibuprofen (Motrin Tab) 400 mg PO Q6H PRN PRN Reason: Pain, moderate (4-7) Last Admin: 10/15/16 17:23 Dose: 400 mg Insulin Human Regular (Humulin R Low) 0 units SC ACHS EMILIO PRN Reason: Protocol Last Admin: 10/18/16 09:18 Dose: 2 units Ketorolac Tromethamine (Toradol) 15 mg IVP Q6 PRN PRN Reason: Pain, moderate (4-7) Stop: 10/19/16 17:09 Last Admin: 10/16/16 09:48 Dose: 15 mg Lisinopril (Zestril) 40 mg PO DAILY [facility] Last Admin: 10/18/16 09:20 Dose: 40 mg Methylprednisolone (Solu-Medrol) 20 mg IVP Q12 [facility] Last Admin: 10/18/16 09:18 Dose: 20 mg Metoprolol Tartrate (Lopressor) 25 mg PO BID [facility] Last Admin: 10/18/16 09:19 Dose: 25 mg Morphine Sulfate (Morphine) 1 mg IVP Q6 [facility] Last Admin: 10/18/16 06:19 Dose: Not Given Nystatin (Nystatin Oral Susp) 5 ml PO QID [facility] Last Admin: 10/18/16 09:20 Dose: 5 ml Ondansetron HCl (Zofran Inj) 4 mg IVP Q4H PRN PRN Reason: Nausea/Vomiting Pantoprazole Sodium (Protonix Ec Tab) 40 mg PO 0600 [facility] Last Admin: 10/18/16 05:20 Dose: 40 mg - Labs Labs: 10/18/16 06:40 10/18/16 06:40 PT 11.3 Seconds (9.9-11.8) 10/14/16 02:55 INR 1.05 (0.93-1.08) 10/14/16 02:55 APTT 26.4 Seconds (23.7-30.8) 10/14/16 02:55 - Constitutional Appears: Non-toxic, No Acute Distress - Head Exam Head Exam: NORMAL INSPECTION - ENT Exam ENT Exam: Mucous Membranes Moist - Neck Exam Neck Exam: absent: Lymphadenopathy, Meningismus - Respiratory Exam Respiratory Exam: Decreased Breath Sounds - Cardiovascular Exam Cardiovascular Exam: +S1, +S2 - GI/Abdominal Exam GI & Abdominal Exam: Soft. absent: Tenderness Assessment and Plan - Assessment and Plan (Free Text) Plan: Assessment Left jaw skin and skin structure infection, without evidence of abscess on CT scan, slowly improving HTN DM Plan will continue Vancomycin and we have added Azactam and Flagyl (day 5) and will monitor clinically; blood cx are negative; reviewed CT of the neck and jaw
--- NOTE | 2016-10-18 15:57 | CARD ---
APPROVED REPORT EKG Measurement Heart [id number] <Conclusion> Sinus rhythm with occasional premature ventricular complexes and premature atrial complexes Minimal voltage criteria for LVH, may be normal variant Nonspecific T wave abnormality Abnormal ECG
[2016-10-18 16:38] VITALS: BP 167/85; PULSE 66; RESP 18; TEMP 99
--- NOTE | 2016-10-18 21:15 | CP.PCM.DIS ---
Provider - Provider Date of Admission: 10/14/16 05:24 Attending physician: Gary Liang MD Primary care physician: Bishnu Gomes MD Consults: Dr Garcia with ID Time Spent in preparation of Discharge (in minutes): 45 Hospital Course - Lab Results Lab Results: Micro Results 10/16/16 08:53 Blood-Venous Blood Culture - Preliminary NO GROWTH AFTER 48 HOURS 10/16/16 08:53 Blood-Venous Blood Culture - Preliminary NO GROWTH AFTER 48 HOURS 10/14/16 07:30 Mouth Gram Stain - Final 10/14/16 07:30 Mouth Wound Culture - Final 10/15/16 06:15 Urine,Clean Catch Urine Culture - Final No Growth (<1,000 CFU/ML) Most Recent Lab Values WBC 4.5 10^3/ul (4.5-11.0) D 10/18/16 06:40 RBC 3.64 10^6/uL (3.5-6.1) 10/18/16 06:40 Hgb 10.7 g/dL (12.0-16.0) L 10/18/16 06:40 Hct 32.2 % (36.0-48.0) L 10/18/16 06:40 MCV 88.5 fl (80.0-105.0) 10/18/16 06:40 MCH 29.4 pg (25.0-35.0) 10/18/16 06:40 MCHC 33.2 g/dl (31.0-37.0) 10/18/16 06:40 RDW 13.5 % (11.5-14.5) 10/18/16 06:40 Plt Count 239 10^3/uL (120.0-450.0) 10/18/16 06:40 MPV 10.7 fl (7.0-11.0) 10/18/16 06:40 Gran % 60.9 % (50.0-68.0) 10/18/16 06:40 Lymph % (Auto) 32.2 % (22.0-35.0) 10/18/16 06:40 [place] % (Auto) 6.0 % (1.0-6.0) 10/18/16 06:40 Eos % (Auto) 0.7 % (1.5-5.0) L 10/18/16 06:40 Baso % (Auto) 0.2 % (0.0-3.0) 10/18/16 06:40 Gran # 2.74 (1.4-6.5) 10/18/16 06:40 Lymph # 1.5 (1.2-3.4) 10/18/16 06:40 [place] # 0.3 (0.1-0.6) 10/18/16 06:40 Eos # 0.0 (0.0-0.7) 10/18/16 06:40 Baso # 0.01 K/mm3 (0.0-2.0) 10/18/16 06:40 ESR 26 mm/hr (0.0-20.0) H 10/15/16 06:30 PT 11.3 Seconds (9.9-11.8) 10/14/16 02:55 INR 1.05 (0.93-1.08) 10/14/16 02:55 APTT 26.4 Seconds (23.7-30.8) 10/14/16 02:55 pCO2 38 mm/Hg (35-45) 10/14/16 08:00 pO2 69.0 mm/Hg (80-100) L 10/14/16 08:00 HCO3 27.0 mmol/L (21-28) 10/14/16 08:00 ABG pH 7.46 (7.35-7.45) H 10/14/16 08:00 ABG Total CO2 28.2 mmol.L (22-28) H 10/14/16 08:00 ABG O2 Saturation 97.4 % (95-98) 10/14/16 08:00 ABG Base Excess 3.1 mmol/L (-2.0-3.0) H 10/14/16 08:00 ABG Potassium 3.3 mmol/L (3.6-5.2) L 10/14/16 08:00 Sodium 139.0 mmol/L (132-148) 10/14/16 08:00 Chloride 105.0 mmol/L (98-107) 10/14/16 08:00 Glucose 253 mg/dl (65-105) H 10/14/16 08:00 Lactate 0.8 mmol/L (0.7-2.1) 10/14/16 08:00 FiO2 21.0 % 10/14/16 08:00 Sodium 141 mmol/L (132-148) 10/18/16 06:40 Potassium 3.7 mmol/L (3.6-5.0) 10/18/16 06:40 Chloride 104 mmol/L (95-110) 10/18/16 06:40 Carbon Dioxide 27 mmol/L (21-33) 10/18/16 06:40 Anion Gap 14 (10-20) 10/18/16 06:40 BUN 16 mg/dL (7-21) 10/18/16 06:40 Creatinine 0.6 mg/dL (0.5-1.4) 10/18/16 06:40 Est GFR ( Amer) > 60 10/18/16 06:40 Est GFR (Non-Af Amer) > 60 10/18/16 06:40 POC Glucose (mg/dL) 181 mg/dL (65-110) H 10/18/16 16:05 Random Glucose 198 mg/dL (70-110) H 10/18/16 06:40 Hemoglobin A1c 8.3 % (4.2-6.5) H 10/14/16 08:50 Calcium 8.8 mg/dL (8.4-10.5) 10/18/16 06:40 Phosphorus 3.3 mg/dL (2.5-4.5) 10/17/16 07:00 Magnesium 1.8 mg/dL (1.7-2.2) 10/17/16 07:00 Total Bilirubin 0.4 mg/dL (0.2-1.3) 10/18/16 06:40 AST 23 U/L (15-39) 10/18/16 06:40 ALT 23 U/L (7-56) 10/18/16 06:40 Alkaline Phosphatase 55 U/L (38-133) 10/18/16 06:40 Lactate Dehydrogenase 580 U/L (333-699) 10/14/16 02:55 Total Creatine Kinase 74 U/L (35-230) 10/18/16 11:33 Troponin I < 0.01 ng/mL 10/18/16 11:33 C-React Prot High Sens 12.35 mg/L (1.00-3.00) H 10/14/16 08:50 Total Protein 6.4 g/dL (5.8-8.3) 10/18/16 06:40 Albumin 3.5 g/dL (3.0-4.8) 10/18/16 06:40 Globulin 2.9 gm/dL 10/18/16 06:40 Albumin/Globulin Ratio 1.2 (1.1-1.8) 10/18/16 06:40 Triglycerides 45 mg/dL (35-160) 10/14/16 08:50 Cholesterol 189 mg/dL (130-200) 10/14/16 08:50 LDL Cholesterol Direct 85 mg/dL (0-129) 10/14/16 08:50 HDL Cholesterol 82 mg/dL (29-60) H 10/14/16 08:50 Procalcitonin < 0.05 NG/ML (0.19-0.49) L 10/14/16 08:50 Free T4 1.15 ng/dL (0.78-2.19) 10/14/16 08:50 Thyroxine (T4) 7.9 ug/dL (5.5-11.0) 10/14/16 08:50 Free T3 pg/mL 2.89 pg/mL (2.77-5.27) 10/14/16 08:50 Total T3 1.04 ng/mL (0.97-1.69) 10/14/16 08:50 TSH 3rd Generation 0.76 mIU/mL (0.46-4.68) 10/14/16 08:50 Arterial Blood Potassium 3.3 mmol/L (3.6-5.2) L 10/14/16 08:00 Urine Color Yellow (YELLOW) 10/15/16 06:15 Urine Appearance Clear (CLEAR) 10/15/16 06:15 Urine pH 6.0 (4.7-8.0) 10/15/16 06:15 Ur Specific [place] 1.020 (1.005-1.035) 10/15/16 06:15 Urine Protein Trace mg/dL (<30 mg/dL) H 10/15/16 06:15 Urine Glucose (UA) Negative mg/dL (NEGATIVE) 10/15/16 06:15 Urine Ketones Negative mg/dL (NEGATIVE) 10/15/16 06:15 Urine Blood Trace-intact (NEGATIVE) H 10/15/16 06:15 Urine Nitrate Negative (NEGATIVE) 10/15/16 06:15 Urine Bilirubin Negative (NEGATIVE) 10/15/16 06:15 Urine Urobilinogen 0.2 E.U./dL (<1 E.U./dL) 10/15/16 06:15 Ur Leukocyte Esterase Trace [place]/uL (NEGATIVE) H 10/15/16 06:15 Urine RBC 0 - 2 /hpf (0-2) 10/15/16 06:15 Urine WBC 15 - 20 /hpf (0-6) 10/15/16 06:15 Ur Epithelial Cells 0 - 2 /hpf (0-5) 10/15/16 06:15 Urine Bacteria Few (NEG) 10/15/16 06:15 Random Vancomycin 8.9 ug/mL (20.0-40.0) L 10/16/16 19:10 CMV IgG Ab >10.00 U/mL H 10/14/16 08:50 CMV IgM Ab <30.00 AU/mL 10/14/16 08:50 HIV 1&2 Antibody Screen Negative (NEGATIVE) 10/16/16 07:58 - Hospital Course Hospital Course: Admit: HPI: Mrs. Oconnell is a 76 year old AA female with a past medical history significant for multiple dental caries, DM2 and uncontrolled HTN who presented to the ED with jaw and chest pain. Patient states that two days ago, her dentures were "rubbing the inside of her mouth too much" and causing her pain inside of her mouth so she took them out. The following morning she woke up with a new mass on her L jaw line and increased pain. Patient states that at that point she took motrin and a percocet 5/325 for the pain and afterwards she started having chest discomfort. She describes this discomfort as "indigestion" that she always gets when she takes motrin. The discomfort is substernal and non -radiating. She reports no alleviating or aggravating factors. She has never had either of these two issues in the past. Upon presentation to the ED, she was found to have a BP of 244/13 but denied any weakness, lightheadedness, vertigo, or pre-syncope. She reports having been admitted to [facility] for this issue in the past but reports that she was "dizzy and almost fainted" at that time. Throughout her stay, Ms. Oconnell had the following w/u and imagin/10: Soft Tissue Neck CT - Soft tissue swelling consistent with cellulitis; No abscess 10/14 CXR - No acute disease 10/14 ECHO - 61.2% EF; Borderline Concentric LVH; Mild TR, Mild Pulm HTN In addition, she was given a full cardiac work up with EKG and Tropes Negative X3. Patient was r/o for ACS. Per ID, she was given Vanc in the ER; then five days of Azactam and Flagyl. Patient was eligible for o/p therapy, and thus was discharged on Moxifloxacin and Doxycycline for 7 days. Discharge Exam - Head Exam Head Exam: ATRAUMATIC, NORMAL INSPECTION, NORMOCEPHALIC - Eye Exam Eye Exam: EOMI, Normal appearance Pupil Exam: NORMAL ACCOMODATION, PERRL - ENT Exam ENT Exam: Mucous Membranes Moist, Normal Exam, Normal External Ear Exam Additional comments: Noted swelling on L mandibular region. Mucous membranes on L superior and inferior gums have a white, viscous film. Multiple dental caries noted. Hard and soft palate appear inflamed. Improved - Respiratory Exam Respiratory Exam: Clear to PA & Lateral, NORMAL BREATHING PATTERN, UNREMARKABLE - Cardiovascular Exam Cardiovascular Exam: REGULAR RHYTHM, RRR, +S1, +S2 - GI/Abdominal Exam GI & Abdominal Exam: Normal Bowel Sounds, Soft, Unremarkable - Rectal Exam Rectal Exam: Deferred - Extremities Exam Extremities exam: full ROM, normal capillary refill, pedal pulses present - Back Exam Back exam: FULL ROM, NORMAL INSPECTION - Neurological Exam Neurological exam: Alert, CN II-XII Intact, Normal Gait, Oriented x3, Reflexes Normal - Psychiatric Exam Psychiatric exam: Normal Affect, Normal Mood - Skin Skin Exam: Intact, Normal Color Discharge Plan - Discharge Medications Prescriptions: Doxycycline Monohydrate [Mondoxyne Nl] 100 mg PO BID #14 capsule Moxifloxacin HCl 400 mg PO DAILY #7 tablet - Follow Up Plan Condition: STABLE Disposition: HOME/ ROUTINE Instructions: Dental Abscess (GEN), Diabetes Mellitus Type 1 in Adults (DC), Hypertension (GEN) Additional Instructions: 1. Please continue your IV Abx 2. Please continue to ambulate as tolerated 3. Please let someone know if you are having trouble breathing Referrals: Bishnu Gomes [Primary Care Provider] -
== END 2016-10-18 21:44 | disposition home or self-care (01) | DRG 603 ==
LOC: ED 02:19 → ERH 05:24 → 2RNO 06:53 → 5RNO 10-16 21:46
PROVIDERS: ADMIT Internal Medicine; ATTEND Internal Medicine
DX: L03.211 Cellulitis of face (principal); E11.65 Type 2 diabetes mellitus with hyperglycemia; I11.9 Hypertensive heart disease without heart failure; K02.9 Dental caries, unspecified; D64.9 Anemia, unspecified; I16.0 Hypertensive urgency; E78.5 Hyperlipidemia, unspecified; I07.1 Rheumatic tricuspid insufficiency; I27.2 Other secondary pulmonary hypertension; R07.89 Other chest pain; Z88.0 Allergy status to penicillin; Z91.14 Patient's other noncompliance with medication regimen; Z87.891 Personal history of nicotine dependence